=== PATIENT | female | born 1955 | race Caucasian/White ===

== ENCOUNTER 2016-05-05 11:39 | Inpatient (IN) | payer OTHER, MEDICARE ==
[~2016-05-05] VITALS: Ht 167.6 cm; Wt 72.6 kg
[~2016-05-05 11:39] MED LIST: BUPROPION HCL150 M1 PO; FLUOXETINE HCL40 MG PO; GENPRIL200 MG PO; LORAZEPAM2 MG PO; METOPROLOL SUCC25 M1 PO; MS CONTIN60 MG PO; OLANZAPINE10 MG PO; OXYCODONE HYDRO15 MG PO; ZOLPIDEM TARTRA10 MG PO
--- NOTE | 2016-05-05 11:53 | NUR ---
PT TO ED WITH . STATES PT IS "OUT OF IT" X A COUPLE DAYS. PT UNABLE TO ANSWER SIMPLE QUESTIONS. POOR HISTORIAN. STATES PT RECENTLY TREATED FOR THE FLU LAST WEEK. AFEBRILE. STATES PT HAS BEEN INCONTINENT X 1 WEEK, WHICH IS ABNORMAL FOR PT. PT PALE, LETHARGIC. PT TAKEN TO ROOM 7 VIA W/C FROM TRIAGE.
--- NOTE | 2016-05-05 11:57 | ED GENERAL ADULT ---
History of Present Illness General Chief Complaint: Altered Mental Status Stated Complaint: CONFUSION, AMS, NOT ACTING HERSELF, SICK X 1 WEEK Source: patient, family Exam Limitations: unable to give history, not alert/orientated, clinical condition, confusion, poor historian, physical impairment Vital Signs & Intake/Output Vital Signs & Intake/Output Vital Signs Date Time Temp Pulse Resp B/P Pulse O2 O2 Flow FiO2 Ox Delivery Rate 05/06 1200 97.7 05/06 0947 93 116/71 05/06 0837 98 Nasal 4.0L Cannula 05/06 0800 98 Nasal 4.0L Cannula 05/06 0800 98.4 90 24 116/80 98 Nasal 4.0L Cannula 05/06 0400 97 Nasal 4.0L Cannula 05/06 0000 98 Nasal 4.0L Cannula 05/06 0000 97.6 94 11 110/74 98 Nasal 4.0L Cannula 05/05 2139 Nasal 6.0L Cannula 05/05 2136 95 Nasal 6.0L Cannula 05/05 2011 99.1 05/05 2000 92 Nasal 6.0L Cannula 05/05 1800 92 Nasal 5.0L Cannula 05/05 1800 99.6 103 22 122/80 92 Nasal 5.0L Cannula 05/05 1733 97.7 101 18 115/69 92 Nasal 5.0L Cannula 05/05 1717 90 Nasal 4.0L Cannula ED Intake and Output 05/06 0000 05/05 1200 Intake Total 4787 Output Total 815 Balance 3972 Intake, IV 4547 Intake, Oral 240 Number 0 Bowel Movements Output, Urine 815 Patient 135 lb 165 lb Weight Allergies Coded Allergies: NO KNOWN ALLERGIES (02/01/14) Reconcile Medications Bupropion Hydrochloride (Bupropion HCl) 150 MG T12 1 TAB PO BID DEPRESSION ( Reported) Fluoxetine Hydrochloride (Fluoxetine HCl) 40 MG CAP 1 CAP PO DAILY DEPRESSION (Reported) Lorazepam 2 MG TABLET 1 TAB PO TID ANXIETY (Reported) Metoprolol Succinate 25 MG TAB 0.5 TAB PO DAILY HEART (Reported) Ms Contin (Morphine Sulfate ER) 60 MG TABLET.ER 1 TAB PO TID PAIN (Reported) Olanzapine 10 MG TAB 1 TAB PO DAILY DEPRESSION (Reported) Oxycodone Hydrochloride 15 MG TAB 1 TAB PO TID PRN PAIN (Reported) Triage Note: PT TO ED WITH . STATES PT IS "OUT OF IT" X A COUPLE DAYS. PT UNABLE TO ANSWER SIMPLE QUESTIONS. POOR HISTORIAN. STATES PT RECENTLY TREATED FOR THE FLU LAST WEEK. AFEBRILE. STATES PT HAS BEEN INCONTINENT X 1 WEEK, WHICH IS ABNORMAL FOR PT. PT PALE, LETHARGIC. PT TAKEN TO ROOM 7 VIA W/C FROM TRIAGE. Triage Nurses Notes Reviewed? yes Onset: Abrupt Duration: day(s): Timing: recent history HPI: Family GERD 05/05/16 12:15 PM 60-year-old female presents to the emergency department for altered mental status cough and fever. According to the and the patient was confused this began yesterday. The onset of the symptoms were abrupt, the duration has been approximately 7 days, the severity is significant as her symptoms required her to come to the emergency department for care. On physical exam she is awake , responds to pain. She is confused. O2 sat was in the 80s. It did come up on 4 L nasal cannula. She has poor air entry bilaterally. Past History Travel History Traveled to [place] past 21 day No Medical History Any Pertinent Medical History? see below for history Cardiovascular: hypertension Psychiatric: depression Surgical History Surgical History: non-contributory Psychosocial History Who do you live with Spouse What is your primary language [place]ian Tobacco Use: Quit >30 days ago ETOH Use: denies use Illicit Drug Use: denies illicit drug use Family History Family History, If Any: FATHER FHx: alcoholism GRAND FATHER FHx: alcoholism FHx: depression Hx Contributory? No Review of Systems Review of Systems Constitutional: Reports: fever. EENTM: Reports: no symptoms. Respiratory: Reports: cough, short of breath. Cardiovascular: Denies: chest pain. GI: Denies: abdominal pain. Genitourinary: Reports: no symptoms. Musculoskeletal: Reports: no symptoms. Skin: Reports: no symptoms. Neurological/Psychological: Reports: confusion. Hematologic/Endocrine: Reports: no symptoms. Physical Exam Physical Exam General Appearance: alert, awake, anxious, moderate distress Head: atraumatic, normal appearance Eyes: Bilateral: normal appearance, PERRL, EOMI. Ears, Nose, Throat: normal pharynx, normal ENT inspection Neck: normal inspection, supple Respiratory: decreased breath sounds, rhonchi Cardiovascular: regular rate/rhythm Peripheral Pulses: 4+ radial (R), 4+ radial (L) Gastrointestinal: non-tender Back: decreased range of motion Extremities: no edema Neurologic/Psych: confused, nonfocal Skin: intact, normal color, warm/dry Core Measures ACS in differential dx? No CVA/TIA Diagnosis: No Severe Sepsis Present: No Septic Shock Present: No Progress Differential Diagnoses I considered the following diagnoses in my evaluation of the patient: [Pneumonia , sepsis, meningitis, drug overdose, polysubstance abuse, alcohol withdrawal, alcohol intoxication, head trauma] Plan of Care: Orders Procedure Date/time Status XRY-PORTABLE CHEST XRAY 05/07 0500 Active ICU LAB BUNDLE 05/07 0500 Active CBC WITHOUT DIFFERENTIAL 05/07 0500 Active Regular Diet 05/06 B Active Restraint- Medical 05/06 1512 Active THERAPIST ORDERS 05/06 0838 Complete Restraint- Medical 05/06 0724 Complete Feldman, Insertion/Removal/Asses 05/06 0724 Active ICU LAB BUNDLE 05/06 0500 Complete CBC WITHOUT DIFFERENTIAL 05/06 0500 Complete Transfer patient to 05/06 UNK Active Regular Diet 05/05 D Complete ICU LAB BUNDLE 05/05 2332 Complete RT: Evaluation 05/05 2011 Active LOWER RESPIRATORY CULTURE 05/05 1939 Active VRE ACTIVE SURVIELLANCE 05/05 1805 Active ICU LAB BUNDLE 05/05 1800 Complete RAPID VIRAL INFLUENZA A 05/05 1721 Complete URINE OSMOLALITY 05/05 1704 Complete URINE LYTES, SPOT 05/05 1704 Complete STREP PNEUMO URINARY ANTIGEN 05/05 1658 Complete LEGIONELLA URINARY ANTIGEN 05/05 1658 Complete PHOSPHORUS 05/05 1630 Complete MAGNESIUM 05/05 1630 Complete SPUTUM INDUCTION CHG 05/05 UNK Complete OXYGEN SETUP CHG 05/05 UNK Complete INCENTIVE SPIROMETRY TRX CHG 05/05 UNK Complete AEROSOL CHG 05/05 UNK Complete OXYGEN 05/05 UNK Complete OXYGEN TRANSPORT 05/05 UNK Complete THERAPIST ORDERS 05/05 UNK Complete OXYGEN SETUP (GEN) 05/05 UNK Complete Lab Add-on Test 05/05 UNK Active Restraint- Medical 05/05 UNK Complete Current Medications Sig/Jeff Start time Last Medication Dose Stop Time Status Admin Azithromycin 500 MG Q24H 05/06 1300 CAN (Zithromax) Sodium Chloride 250 ML (Normal Saline 0.9%) Metoprolol Tartrate 12.5 MG DAILY 05/06 1000 CAN (Lopressor) Morphine Sulfate 2 MG Q4P PRN 05/05 1645 AC (Morphine) Laboratory Tests 05/06/16 0426: Anion Gap 13, Estimated GFR 14 L, Glucose 90, Calcium 7.0 L, Phosphorus 3.9, Magnesium 1.8, Total Bilirubin 0.5, AST 152 H, ALT 62 H, Albumin 2.3 L, CBC w Diff MAN DIFF ORDERED, RBC 3.30 L, MCV 85.9, MCH 29.4, RDW 14.4, MPV 8.0, Gran % 81.8 H, Lymphocytes % 14.8 L, Monocytes % 3.0, Eosinophils % 0, Basophils % 0.4, Absolute Granulocytes 4.4, Segmented Neutrophils 64, Band Neutrophils 10 H , Absolute Lymphocytes 0.8 L, Lymphocytes 23, Monocytes 2, Absolute Monocytes 0.2, Absolute Eosinophils 0, Absolute Basophils 0, Metamyelocytes 1, Platelet Estimate ADEQUATE, Polychromasia 1+, Ovalocytes 1+, PUBS MCHC 34.2 05/05/16 2357: Anion Gap 11, Estimated GFR 13 L, Glucose 99, Calcium 6.8 L, Phosphorus 3.8, Magnesium 1.8, Total Bilirubin 0.5, AST 168 H, ALT 69 H, Albumin 2.5 L 05/05/16 1805: Anion Gap 13, Estimated GFR 13 L, Glucose 111 H, Lactic Acid 1.2, Calcium 6.7 L, Phosphorus 3.5, Magnesium 1.6, Total Bilirubin 0.4, AST 161 H, ALT 63 H, Albumin 2.5 L 05/05/16 1800: Ur Random Creatinine Cancelled, U Random Total Protein Cancelled 05/05/16 1800: Urine Osmolality 368, Ur Random Creatinine 49.2, Ur Random Sodium 74, Ur Random Potassium 18.5, Fraction Sodium Excret 4.7 H 05/05/16 1715: Ur Random Creatinine 52.1, U Random Total Protein 70 H, Protein/Creatinin Ratio 1.3 H Microbiology 05/05 1999 LOWER RESP: Respiratory Culture - RES 05/05 1999 LOWER RESP: Gram Stain - RES 05/05 1800 URINE ROUT: Legionella Antigen - COMP 05/05 1800 URINE ROUT: Streptococcus pneumoniae Antigen (M - COMP STREP PNEUMO BACTERIAL AG 05/05 1800 UPPER RESP: Surveillance Culture - RECD 05/05 1800 GI: Surveillance Culture - RECD CXR Impression: bilateral pneumonia Initial ED EKG: sinus tachycardia Departure Departure Disposition: STILL A PATIENT Condition: Stable Clinical Impression Primary Impression: Pneumonia Secondary Impressions: Renal failure Referrals: JOAQUIN SAMANIEGO,SELENA Espinosa (PCP/Family) Referred to [facility] as new patient No Departure Forms: Customer Survey General Discharge Information Comments The patient was placed on a monitor, she was given oxygen, IV fluids 4 L, IV antibiotics after blood cultures. She was admitted to the hospital for further care. Skin perfusion exam was done upon my evaluation at 12:15 PM Admission Note Spoke With: JULIOCESAR SAMANIEGO,TYRELL Conner Documentation of Exam: Documentation of any treatments & extenuating circumstances including Concerns Regarding Discharge (functional status, medication knowledge or non-compliance, living conditions, etc.) that warrant an admission rather than observation: [The patient needs admission for IV antibiotics, oxygen, consider pulmonary consultation, IV fluids, strict I's and O's, ICU level care] ED Sepsis Exam Date of Focused Sepsis Exam: 05/05/16 Time of Focused Sepsis Exam: 1215 Sepsis Cardiac Exam: Tachycardia Sepsis Resp Exam: Ronchi Sepsis Cap Refill Exam: <2 Sec Sepsis Peripheral Pulse Exam: Normal Sepsis Peripheral Pulse Location: Radial Sepsis Skin Color Exam: Normal for Ethnicity Skin Temp/Moisture Exam: Warm/Dry Critical Care Note Critical Care Note Critical Care Time: 30-74 min
[2016-05-05 12:09] LABS: ABSOLUTE BASOPHIL COUNT 0 /CUMM (0.0-0.2); ABSOLUTE EOSINOPHIL COUNT 0 /CUMM (0.0-0.7); ABSOLUTE GRANULOCYTE CT 5.4 /CUMM (1.4-6.5); ABSOLUTE LYMPH COUNT 0.4 /CUMM (1.2-3.4); ABSOLUTE MONOCYTE COUNT 0.1 /CUMM (0.10-0.60); BASOPHIL % 0.7 % (0.0-2.0); EOSINOPHIL % 0 % (0-5); HEMATOCRIT 38.8 % (37-47); MEAN CORPUSCULAR HGB 28.8 PG (27.0-31.0); MEAN CORPUSCULAR HGB CONC 33.2 G/DL (33.0-37.0); MEAN CORPUSCULAR VOLUME 86.8 FL (81.0-99.0); MEAN PLATELET VOLUME 7.9 FL (7.4-10.4); PLATELET COUNT 216 /CUMM (130-400); RBC DISTRIBUTION WIDTH 13.7 % (11.5-14.5); RED BLOOD CELL CT 4.48 /CUMM (4.20-5.40)
[2016-05-05 12:20] LABS: GRANULOCYTE % 90.9 % (42.2-75.2)
--- NOTE | 2016-05-05 12:24 | NUR ---
PT IS LETHARGIC CONFUSED 02 SAT 87% ON RA PT PLACED ON 02 5L VIA NC 02 INCREASED TO 91% BLOOD DRAWN SENT TO LAB [facility] PLACED DRAINING DARK GARY URINE IV ESTABLISHED
--- NOTE | 2016-05-05 12:28 | NUR ---
CRITICAL TEST RESULTS [id number] MORGAN CALDERON 60 F TESTS AND RESULTS: LACTIC ACID 2.0 Results received and read back by: SKYLAR CLIFTON Results received date and time: 05/05/16 1254 The following provider was notified of the results, and read the results back: DR. GARCIA Notified date and time: 05/05/16 at 1222
--- NOTE | 2016-05-05 12:52 | NUR ---
PT REMAINS CONFUSED FLUIDS INFUSING DIRECTED ABX INFUSED AFTER 2ND SET OF BLOOD CULTURES
--- NOTE | 2016-05-05 13:25 | NUR ---
PT ALERT AT THIS TIME AWARE THAT SHE IS IN THE HOSPITAL FLUIDS CONT. TO INFUSE
--- NOTE | 2016-05-05 13:30 | RADIOLOGY REPORT ---
EXAMINATION: XR PORTABLE CHEST CLINICAL INFORMATION: Shortness of breath. Acute mental status change. Hypoxia. COMPARISON: None. TECHNIQUE: Portable view of the chest was obtained. FINDINGS: The cardiac and mediastinal contours are normal. There is scattered increased parenchymal opacities seen in the lungs. Largest area measures 2.3 cm and projects over the left upper lobe and left lower scapula. Appearances questionable for pneumonia. There is no pleural effusion or pneumothorax. Visualized bony structures are unremarkable. IMPRESSION: Scattered abnormal parenchymal opacities, largest measuring approximately 2.3 cm projecting over the left upper lobe. Chest x-ray appearance is questionable for bilateral multilobar pneumonia.
--- NOTE | 2016-05-05 15:02 | NUR ---
BED 109
--- NOTE | 2016-05-05 15:10 | NUR ---
REPEAT LACTIC DRAWN AND SENT
--- NOTE | 2016-05-05 15:25 | Admission Certification ---
Admission Certification Certification Statement - As attending physician, I certify that at the time of - admission, based on clinical presentation, severity of - symptoms, need for further diagnostic testing and - therapeutic interventions, and risk of adverse outcomes - without in-hospital treatment, in my clinical assessment, - this patient requires an acute hospital stay for a minimum - of two nights or longer. I have also considered psychsocial - factors such as support system, advanced age, financial - issues, cognitive issues, and failed out-patient treatments, - past re-admission history, safety of patient, and lack of - compliance as applicable. Specific rationale supporting this admission is: Multilobar pneumonia with significant hypoxemia and acute renal failure.
--- NOTE | 2016-05-05 15:28 | PN- Att Addend ---
Attending Addendum Attending Brief Note 60-year-old female with significant psychiatric history and chronic opiate dependence. She is on multiple psychiatric medications and opiate medications. She is here with what appears to be severe multilobar pneumonia with acute hypoxemic respiratory failure (87%on RA), acute renal failure, no leukocytosis but significant bandemia, lactic acidosis and transaminitis. I think her symptoms are all related to the ongoing infection. She is already become more awake and alert after getting IV fluids and IV antibiotics in the ER. Will watch her in the ICU overnight, I have no suspicion of MRSA or pseudomonas so we 'll continue her on ceftriaxone and azithromycin for community-acquired pneumonia. Hydrate her aggressively and repeat her BMP to follow-up on the BUN and creatinine. Follow the urine output closely. Repeat the lactic acid. Get urine electrolytes and if her creatinine doesn't improve her renal ultrasound to rule out obstruction. Renal consult. We'll obviously have to hold on any sedating medications for now but will watch closely for opiate withdrawal. We' ll need to clarify all her anti-psychotics and psychiatric medications. DVT prophylaxis and follow her closely. TTS 42 minutes
--- NOTE | 2016-05-05 15:41 | NUR ---
HOUSE STAFF IN ROOM FOR EVAL.
--- NOTE | 2016-05-05 16:00 | History & Physical ---
JAGRUTI SAMANIEGOLETA 05/05/16 5959: General Information and HPI MD Statement: I have seen and personally examined MORGAN CALDERON and documented this H&P. The patient is a 60 year old F brought in by her for evaluation of altered mental status. Source of Information: patient, family, old records Exam Limitations: unable to give history, not alert/orientated, clinical condition, confusion History of Present Illness: 60-year-old woman seen for evaluation of altered mental status. Collateral information is obtained from her Ata as patient is not alert or oriented. She was in her normal state of health until one week ago where she and her developed "the flu". During this time the both were bedridden with shortness of breath, fever, cough, nausea, and vomiting. Reports that she had decreased oral intake during this time. Patient was reportedly "feeling better" the day prior to admission and was in her normal state of health. At baseline she is disabled secondary to back/right hip pain and a history of depression with suicidal ideation, no attempts but remains active going to the gym each day. 2 weeks ago patient was seen by her primary care physician Dr. Singh in [place] (recently moved to [place] from there) for symptoms of incontinence on the treadmill for which she was prescribed Vesicare. She then subsequently developed urinary and bowel incontinence for which she then discontinued the medication two days prior to admission. Information regarding history of present illness is unobtainable from patient as she is not oriented to person place or time. Her denies that his uses any alcohol, tobacco, or recreational drug use. Review of systems is unobtainable due to patient's medical condition. PMHx: Hypertension, Depression, Suicidal Ideation, Lowback/right hip pain Allergies/Medications Allergies: Coded Allergies: NO KNOWN ALLERGIES (02/01/14) Home Med list Bupropion Hydrochloride (Bupropion HCl) 150 MG T12 1 TAB PO BID DEPRESSION ( Reported) Fluoxetine Hydrochloride (Fluoxetine HCl) 40 MG CAP 1 CAP PO DAILY DEPRESSION (Reported) Lorazepam 2 MG TABLET 1 TAB PO TID ANXIETY (Reported) Metoprolol Succinate 25 MG TAB 0.5 TAB PO DAILY HEART (Reported) Ms Contin (Morphine Sulfate ER) 60 MG TABLET.ER 1 TAB PO TID PAIN (Reported) Olanzapine 10 MG TAB 1 TAB PO DAILY DEPRESSION (Reported) Oxycodone Hydrochloride 15 MG TAB 1 TAB PO TID PRN PAIN (Reported) Past History Travel History Traveled to [place] past 21 day No Medical History Cardiovascular: hypertension Musculoskeletal: CHRONIC BACK PAIN Psychiatric: depression Surgical History Surgical History: unobtainable Past Family/Social History Family History Relations & Conditions if any FATHER FHx: alcoholism GRAND FATHER FHx: alcoholism FHx: depression Psychosocial History Where do you live? Home Who Do You Live With? spouse ETOH Use: denies use Illicit Drug Use: denies illicit drug use Review of Systems Review of Systems Constitutional: Reports: see HPI. Exam & Diagnostic Data Last 24 Hrs of Vital Signs/I&O Vital Signs Date Time Temp Pulse Resp B/P Pulse O2 O2 Flow FiO2 Ox Delivery Rate 05/05 1733 97.7 101 18 115/69 92 Nasal 5.0L Cannula 05/05 1717 90 Nasal 4.0L Cannula 05/05 1641 98.7 101 22 116/74 91 Nasal 3.0L Cannula 05/05 1612 97.7 101 20 121/83 92 Nasal 3.0L Cannula 05/05 1532 98.9 101 18 113/79 18 Nasal 3.0L Cannula 05/05 1325 98.7 105 16 118/69 92 Nasal 4.0L Cannula 05/05 1256 99.4 107 18 126/69 93 Nasal 3.0L Cannula 05/05 1226 92 Nasal Cannula 05/05 1149 97.1 112 20 102/69 95 Room Air Intake & Output 05/05 1600 05/05 0800 05/05 0000 Intake Total 3000 Output Total 320 Balance 2680 Intake, IV 3000 Output, Urine 320 Patient 74.843 kg Weight Physical Exam General Appearance Alert, Oriented X3, Cooperative, No Acute Distress Skin No Rashes, No Breakdown, No Significant Lesion HEENT Atraumatic, PERRLA, EOMI, Dry mucous membranes with scaling Neck Supple Cardiovascular Regular Rate, Normal S1, Normal S2, No Murmurs Lungs Diffuse crackles/rhonchi/wheezing heard in all lung mueller Abdomen Normal Bowel Sounds, Soft, No Tenderness, No Hepatospenomegaly, No Masses Neurological Normal Tone, not oriented to person place or time, cranial nerves II through XII grossly intact, otherwise limited neurological exam Extremities No Clubbing, No Cyanosis, No Edema, Normal Pulses, No Tenderness/ Swelling Vascular Normal Pulses, Pulses Symmetrical Last 24 Hrs of Labs/Evangelist: Laboratory Tests 05/05/16 1630: Phosphorus 3.4, Magnesium 1.6, Creatine Kinase 4655 H, Troponin I < 0.01 05/05/16 1509: Lactic Acid 2.9 H 05/05/16 1255: pH 7.40, pCO2 36, pO2 65 L, HCO3 22, ABG O2 Sat (Measured) 91.0 L, P-50 (Temp Corrected) Y, Carboxyhemoglobin 0.7 L, O2 Concentration % 3L, Temperature 99.4, O2 Delivery Method N/C, Phlebotomy Draw Site RIGHT RADIAL 05/05/16 1220: Urine Opiates Screen > 4000.00 H, Methadone Screen 57, Barbiturate Screen < 60, Ur Phencyclidine Scrn < 6.00, Amphetamines Screen 466, U Benzodiazepines Scrn 159, Urine Cocaine Screen < 50, Urine Cannabis Screen < 5.00, Urinalysis HEAVY H, Urine Color YEL, Urine Clarity HAZY H, Urine pH 6.0, Ur Specific [place] 1.025, Urine Protein 100 H, Urine Ketones NEG, Urine Nitrite NEG, Urine Bilirubin NEG, Urine Urobilinogen 0.2, Ur Leukocyte Esterase NEG, Ur Microscopic SEDIMENT EXAMINED, Urine RBC 5-10 H, Urine WBC 1-3 H, Ur Epithelial Cells RARE , Urine Hemoglobin LARGE H, Urine Glucose NEG 05/05/16 1201: Anion Gap 18 H, Estimated GFR 11 L, BUN/Creatinine Ratio 15.6, Glucose 113 H, Lactic Acid 2.0, Calcium 8.0 L, Total Bilirubin 0.8, AST 206 H, ALT 75 H, Alkaline Phosphatase 74, Ammonia 15, Total Protein 6.5, Albumin 3.5, Globulin 3.0, Albumin/Globulin Ratio 1.2, CBC w Diff MAN DIFF ORDERED, RBC 4.48, MCV 86.8 , MCH 28.8, RDW 13.7, MPV 7.9, Gran % 90.9 H, Lymphocytes % 6.7 L, Monocytes % 1.7, Eosinophils % 0, Basophils % 0.7, Absolute Granulocytes 5.4, Segmented Neutrophils 71, Band Neutrophils 17 H, Absolute Lymphocytes 0.4 L, Lymphocytes 10 L, Monocytes 2, Absolute Monocytes 0.1 L, Absolute Eosinophils 0, Absolute Basophils 0, Normocytic RBCs VERIFIED, Normochromic RBCs VERIFIED, PUBS MCHC 33.2 Microbiology 01/02 1658 URINE ROUT: Legionella Antigen - ORD 05/05 1658 URINE ROUT: Streptococcus pneumoniae Antigen (M - ORD 05/05 1551 UPPER RESP: Surveillance Culture - ORD 05/05 1236 BLOOD: Blood Culture - RECD 05/05 1220 URINE ROUT: Urine Culture - RECD 05/05 1220 BLOOD: Blood Culture - RECD Diagnostic Data EKG Results Sinus tachycardia 104 ND 146 QTc 495 Q waves II, aVF, V4-V6 No ST-segment changes Repeat EKG Normal Sinus Rhythm 85 ND 192 QTc 505 Q-wave II,III,AVF, V4-[address]-segment changes CXR Results IMPRESSION: Scattered abnormal parenchymal opacities, largest measuring approximately 2.3 cm projecting over the left upper lobe. Chest x-ray appearance is questionable for bilateral multilobar pneumonia. Assessment/Plan Assessment: 60-year-old woman with a medical history significant for hypertension, depression, suicidal ideation without attempts seen for evaluation of altered mental status. Patient had "the flu" 1 week prior to admission for which she had decreased by mouth intake and subsequently became more confused. During this time she was also incontinent of urine and stool, which reportedly started after she started taking Vesicare. She was found to be creasing the more confused this morning for which her can brought her to the emergency department for evaluation. Triage notes that patient was hypoxic to 80% upon initial evaluation. Vital signs the ER demonstrated temp 97.7-99.4, HR 101-112, RR 16-22, BP 102-26/69-83, O2 91-95% on 4.0 L via nasal cannula. Physical examination demonstrated woman not oriented to person place or time in mild respiratory distress with crackles heard in all 4 lung mueller and a limited but benign neurological exam. Lab work was remarkable for WBC 6.0, BUN/ creatinine 67/4.3, lactic acid 2.9, AST/ALT 206/75, troponin <0.01, CPK pending. Arterial blood gas demonstrated hypoxia and chest x-ray demonstrated multilobar pneumonia. Urine toxicology was positive for opiates, methadone, amphetamines, and benzodiazepines. Blood/urine cultures were taken and patient was given intravenous fluids and antibiotics and admitted to the intensive care unit for further treatment and evaluation. Problem list: -Acute hypoxic respiratory failure -Sepsis -Community-acquired pneumonia -Prerenal acute kidney injury -Positive urine tox screen -Q waves on EKG in inferior leads/V4-V6 Respiratory/infectious disease: Patient was afebrile without leukocytosis upon initial evaluation despite being hypoxic to the "80s "in triage requiring supplemental oxygen via nasal cannula. -TRC neb treatments as needed -Ceftriaxone 1 g IV daily -Azithromycin 500 mg IV daily -Albuterol/ipratropium -Follow-up CT chest Cardiovascular: EKG on initial evaluation demonstrated sinus tachycardia with QTc prolongation and Q waves present and inferior leaves and V4-6. Troponin was <0.01. Patient, although altered does admit to left-sided chest pain radiating through to the back. -Telemetry -Metoprolol XL 12.5 mg by mouth daily Renal: Patient found to be severely dehydrated requiring 5+ liters of normal saline intravenous resuscitation prior to being admitted. BUN/creatinine found to be elevated suggestive of a pre-renal acute kidney injury. It was found to be elevated to 4600. -Normal saline at 100 mL per hour -Nephrology consult placed, follow-up recommendations -Follow-up renal ultrasound -Follow-up urine electrolytes Musculoskeletal: Patient reportedly has a history of long-standing back pain and right hip pain for which she is seen by her primary care physician (Dr. Singh) and treated with opiate narcotics. CPK found to be elevated to 4600. CT COOLING TOWER OPERATOR checked, reported medications are consistent with this report; printed copy is available in the chart. -MS Contin held for altered mental status -Oxycodone 15 mg by mouth 3 times a day as needed for pain 4-6 -Morphine 2 mg IV every 4 hours as needed for pain 7-10 Psychiatric: Patient has an extensive history of depression and suicidal ideation without any reported attempts. She was seen by Dr. Hutchinson of [place] for treatment of this initially and has been maintained on her antipsychotic/depression medication regimen for some time by her PCP, which has been reportedly stable. -Bupropion/fluoxetine/olanzapine held for prolonged QTC -Lorazepam 1 mg by mouth 3 times a day as needed -Psychiatric consult placed, follow-up recommendations Pain plan-as above Diet-nothing by mouth pending swallow evaluation in morning DVT prophylaxis-subcutaneous heparin CODE STATUS-DNR/DNI per As Ranked By This Provider Problem List: 1. Pneumonia 2. Renal failure Core Measures/Miscellaneous Acute Coronary Syndrome ACS Diagnosis: No Cerebrovascular Accident CVA/TIA Diagnosis: No Congestive Heart Failure CHF Diagnosis: No Venous Thromboembolism VTE Risk Factors: Age > 40 VTE Prophylaxis Ordered Inpt: Mech & Pharm No Mech VTE prophylaxis d/t: No contraindications No VTE Pharm Prophylaxis d/t: No contraindications VTE Diagnosis: No VTE Type: NONE VTE Confirmed by (Test): NONE Severe Sepsis Severe Sepsis Present: No Septic Shock Septic Shock Present: No Miscellaneous Documentation Attending Case Discussed With: JULIOCESAR SAMANIEGO,TYRELL Conner Primary Care Physician: SELENA SINGH MD Patient sees these Specialists None Level of Patient Care: Critical Care (CRI) Consults Needed: 1 Consulting Specialty: Nephrology Consults Needed: 2 Consulting Specialty: Psychiatry MATT MASON 05/05/16 1643: Resident Review Statement Resident Statement: agreed with internal combustion engine subassembler Other Findings: She is 60-year-old woman with past medical history of severe depression, bipolar disorder, suicidal ideation in past, hypertension, chronic opiate dependence ( lower back and right hip pain) was brought into ER by with complaint of altered mental status. Upon our evaluation patient was confused so most of the history was obtained from who told us that 2 weeks ago she was having flulike symptoms, bowel and urinary incontinence and decreased by mouth intake. She was completely oriented and with it until yesterday. This morning she was confused and altered and he brought her here. denies use of tobacco, alcohol or illicit drug use. She does not see any specialist. Dr. Singh, PCP takes care of all her health issues. When she came to ER her temperature was 97.1, pulse 112, respiratory rate 20, blood pressure 102/69 and oxygen saturation 87% on room air. She was put on 5 L of oxygen via nasal cannula and oxygen saturation went up to 91%. Physical exam General appearance: Alert, awake but confused Mucous membranes: Very dry HEENT: Pupils minimally reactive Neck: Supple Heart: Tachycardia. No murmurs Lungs: Diffuse rhonchi all over Abdominal exam: Normal Extremities: No edema. Pulses palpable Pertinent labs: WBC count 6 with 17 bands, BUN 67, creatinine 4.3, lactic acid 2.0 that went up to 2.9, AST 206, ALT 75, U tox positive for opiates, methadone, amphetamines and benzos. ABGs not significant. UA with 2+ proteinuria. EKG: Normal sinus rhythm with Heart rate 104, no acute ST-T wave changes. QTC 495 CXR: Findings suggestive of multilobar pneumonia In ER she was given IV fluids, ceftriaxone and azithromycin 1 and nebulization treatment. Assessment and plan She is 60-year-old woman with past medical history of severe depression, bipolar disorder, suicidal ideation in past, hypertension, chronic opiate dependence is going to be admitted to critical care unit for: 1. Acute hypoxemic respiratory failure secondary to sepsis due to multilobar pneumonia most likely community-acquired 2. Acute kidney injury most likely secondary to severe dehydration 3. Transaminitis most likely secondary to sepsis 4. Lactic acidosis 5. Positive U tox screen 6. Severe depression/bipolar disorder/suicidal ideation in past 7. Hypertension 8. Chronic opiate dependence due to chronic back and hip pain Will continue supplemental oxygen. Will keep oxygen saturation more than 92%. Closer vitals monitoring. Will continue ceftriaxone and azithromycin. TRC nebs. Blood and sputum cultures. Urine Legionella and strep pneumonia antigen. CT chest w/o IV contrast. We will continue IV hydration. Will check kidney functions again in few hours. Feldman is in place. Strict I's and O's. Avoid nephrotoxins. Renal ultrasound to rule out any obstruction. Spoke with Dr. Fontenot who is vice president mission integration cost accounting clerk. Recommended to add on CPK, magnesium and phosphorous. He also wants to do urine lites and spot urine creatinine and protein. He does not think patient needs urgent dialysis. We'll update him about repeat labs. We will also consult psych for her severe depression and bipolar disorder. We are holding her antipsychotic medications for now. Will give her 1 mg Ativan when necessary for agitation or irritability. She is chronic opiate dependence we are continuing her oxycodone. Holding MS Contin. We can give her IV morphine when necessary for chronic pain. We will continue her metoprolol. Will closely monitor blood pressure. Subcutaneous heparin for DVT prophylaxis Nothing by mouth for now. Will do a bedside swallow evaluation and can start her on regular diet Moderate to severe pain pathway DNR/DNI TYRELL GANDARA MD 05/06/16 0748: Attending MD Review Statement Attending Statement Attending MD Statement: examined this patient, discuss w/resident/PA/COMBER TENDER, agreed w/resident/PA/COMBER TENDER, reviewed EMR data (avail), discussed with nursing, discussed with case mgmt Attending Assessment/Plan: See medical brief addendum note dated 05/05/16
--- NOTE | 2016-05-05 16:32 | NUR ---
REPEAT TROPONIN DRAWN AND SENT TO LAB
--- NOTE | 2016-05-05 17:07 | NUR ---
REPORT CALLED TO GABRIELA JUÁREZ RESP. PAGED FOR NEB TREATMENT
--- NOTE | 2016-05-05 17:18 | NUR ---
PT RECEIVING NEB TREATMENT AFTER TREATMENT PT WILL GO TO CAT SCAN AND THEN TO US
--- NOTE | 2016-05-05 17:21 | NUR ---
SPOUSE BROUGHT HOME ALL PT BELONGINGS
[2016-05-05 18:00] VITALS: BP 122/80
--- NOTE | 2016-05-05 18:11 | CT SCAN REPORT ---
EXAMINATION: CT CHEST WITHOUT CONTRAST CLINICAL INFORMATION: Acute hypoxia and respiratory failure. 60-year-old female. COMPARISON: Precocious x-ray done earlier today. (Atypical pneumonia). TECHNIQUE: Multidetector volumetric CT imaging of the chest was done. Axial MIP volume rendering provided. Sagittal and coronal reformatted images were obtained. DLP: 183 mGy-cm. FINDINGS: SCIENTIFIC PROCESS OPERATOR: Progressive pneumonia in both lungs. LUNGS: Multilobar airspace opacities are seen in both lungs diagnostic of multilobar pneumonia. The worst involvement is in the left lower lobe which shows dense consolidation and air bronchograms. MEDIASTINUM: Subcentimeter lymph nodes could well be reactive. There is a suggestion of bilateral bronchomalacia. PLEURA: There is no pleural effusion. No pleural mass or thickening. AXILLA: No lymphadenopathy. UPPER ABDOMEN: The patient's gallbladder has been removed. Recommend ultrasound the kidneys to evaluate the possibility of hydronephrosis of the left kidney. OSSEOUS STRUCTURES: Unremarkable. IMPRESSION: Rapidly progressive multilobar pneumonia. Bronchomalacia.
--- NOTE | 2016-05-05 20:26 | NUR ---
PT DROWSY, EASILY AROUSABLE TO VERBAL STIMULI, CONFUSED, DISORIENTED TO TIME AND PLACE. FOLLOWS COMMANDS. C/O HEADACHE-SEE EMAR FOR PAIN MED ADMINISTRATION. DENIES ANY OTHER PAIN AT PRESENT. INS/ EXP WHEEZES THOUGHOUT BILATERALLY. NT SUCTIONED BY RESP THERAPIST FOR LARGE AMT OF THICK DONIS SECREATIONS. NO SOB OR RESP DISTRESS NOTED AT PRESENT. SEE FLOW SHEET FOR VS, 02 SATS, I/O'S. MONITOR SHOWS NSR-ST, NO ECTOPY NOTED AT PRESENT. BP STABLE AT PRESENT. ABD SOFT, NONTENDER, NONDISTENDED, POSITVE BOWEL SOUNDS. ALMARAZ IN PLACE-DRAINING ADEQUATE AMT OF CLEAR YELLOW URINE AT PRESENT. SKIN INTACT
--- NOTE | 2016-05-05 22:29 | NUR ---
PT PULLING AT 02, IV'S, ALMARAZ-BILATERAL SOFT RESTRAINTS APPLIED-REPORTED TO DR. MCQUEEN
[2016-05-06] VITALS: BP 110/74
[2016-05-06 05:15] LABS: ABSOLUTE BASOPHIL COUNT 0 /CUMM (0.0-0.2); ABSOLUTE EOSINOPHIL COUNT 0 /CUMM (0.0-0.7); ABSOLUTE LYMPH COUNT 0.8 /CUMM (1.2-3.4); RBC DISTRIBUTION WIDTH 14.4 % (11.5-14.5); WHITE BLOOD CELL COUNT 5.4 /CUMM (4.8-10.8)
[2016-05-06 05:22] LABS: ABSOLUTE GRANULOCYTE CT 4.4 /CUMM (1.4-6.5); ABSOLUTE MONOCYTE COUNT 0.2 /CUMM (0.10-0.60); BASOPHIL % 0.4 % (0.0-2.0); EOSINOPHIL % 0 % (0-5); GRANULOCYTE % 81.8 % (42.2-75.2); MEAN CORPUSCULAR HGB 29.4 PG (27.0-31.0); MEAN CORPUSCULAR HGB CONC 34.2 G/DL (33.0-37.0); MEAN CORPUSCULAR VOLUME 85.9 FL (81.0-99.0); PLATELET COUNT 193 /CUMM (130-400)
[2016-05-06 05:25] LABS: HEMATOCRIT 28.3 % (37-47)
--- NOTE | 2016-05-06 06:16 | NUR ---
PT SLEPT MOST OF NIGHT. PT NOW ORIENTED TO PLACE AND YEAR, COOPERATIVE WITH CARE-SOFT BILATERAL WRIST RESTRAINTS REMOVED AT 0400-PT NO LONGER PULLING AT ALMARAZ, 02, IV'S. INS/EXP IMPROVED FROM BEGINNING OF SHIFT. NO COUGH, SOB OR RESP DISTRESS NOTED THOUGHOUT SHIFT. 02 SATS 96-100% ON 4LNC FOR SHIFT. MONITOR NSR, NO ECTOPY THOUGHOUT SHIFT, HR-80-90'S FOR SHIFT. SBP-90-110'S FOR SHIFT. AFEBRILE FOR SHIFT. ADEQUATE URINE OUTPUT OF CLEAR YELLOW URINE FOR SHIFT. SKIN INTACT. SINCE MEDICATED FOR HEADACHE, NO MORE C/O PAIN FOR SHIFT. ALYSIA VEST REMAINS ON
[2016-05-06 08:00] VITALS: BP 116/80
--- NOTE | 2016-05-06 10:05 | NUR ---
TRANSFER ORDER TO GENERAL MEDICINE; NOTIFIED ED V. MANAGER CLINICAL APPLICATIONS NURSE. REVIEWED WITH PATIENT. CALL HARKINS IN [place].
--- NOTE | 2016-05-06 11:01 | Cons- Nephrology ---
General Information and HPI Consulting Request Date of Consult: 05/06/16 Requested By: TYRELL GANDARA MD Reason for Consult: Elevated serum creatinine level History of Present Illness: The patient is a 60-year-old woman with a past medical history that includes hypertension and depression but no previous history of kidney disease. Most recent serum creatinine level available is from February 2014 at which time her creatinine was 0.9. She was now admitted with a one-week history of a flulike illness with cough, shortness of breath, nausea, vomiting, diarrhea (which she denies) and poor by mouth intake. She was also confused at time of presentation. Blood pressures have been quite normal, perhaps slightly low for someone with a history of hypertension. Serum creatinine at presentation yesterday was 4.3 and has come down to 3.3 today with IV fluids. There has been no hypotension and no exposure to potential nephrotoxins. She does have a history of suicide ideation and is on a number of sedatives and pain medications - primarily for chronic back pain. Renal ultrasound and blood/urine culture results are pending. Chest x-ray shows multilobar pneumonia and urine pneumococcal antigen is positive with a negative Legionella antigen. Past medical history is positive for hypertension, depression, chronic low back pain. Medications: See below Allergies: No known drug allergies Family history: Negative for any known kidney disease in parents or any other family members Social history: , lives with , has 4 children and 4 grandchildren, worked in daycare in the past, no significant history of cigarette smoking, alcohol abuse or intravenous drug use. Allergies/Medications Allergies: Coded Allergies: NO KNOWN ALLERGIES (02/01/14) Home Med List: Bupropion Hydrochloride (Bupropion HCl) 150 MG T12 1 TAB PO BID DEPRESSION ( Reported) Fluoxetine Hydrochloride (Fluoxetine HCl) 40 MG CAP 1 CAP PO DAILY DEPRESSION (Reported) Lorazepam 2 MG TABLET 1 TAB PO TID ANXIETY (Reported) Metoprolol Succinate 25 MG TAB 0.5 TAB PO DAILY HEART (Reported) Ms Contin (Morphine Sulfate ER) 60 MG TABLET.ER 1 TAB PO TID PAIN (Reported) Olanzapine 10 MG TAB 1 TAB PO DAILY DEPRESSION (Reported) Oxycodone Hydrochloride 15 MG TAB 1 TAB PO TID PRN PAIN (Reported) Review of Systems Review of Systems Constitutional: Reports: see HPI, fever, malaise, weakness. EENTM: Reports: see HPI. Cardiovascular: Reports: see HPI. Respiratory: Reports: see HPI, cough, short of breath, wheezing. GI: Reports: see HPI, diarrhea, vomiting. Genitourinary: Reports: no symptoms, see HPI. Musculoskeletal: Reports: see HPI, back pain. Skin: Reports: no symptoms, see HPI. Neurological/Psychological: Reports: see HPI, cognitive dysfunction, confusion, depressed. Hematologic/Endocrine: Reports: no symptoms. Immunologic/Allergic: Reports: no symptoms. Past History Travel History Traveled to [place] past 21 day No Medical History Blood Transfusion Hx: No Cardiovascular: hypertension Musculoskeletal: CHRONIC BACK PAIN Psychiatric: depression Surgical History Surgical History: unobtainable Family History Relations & Conditions If Any: FATHER FHx: alcoholism GRAND FATHER FHx: alcoholism FHx: depression Psychosocial History Where Do You Live? Home Who Do You Live With? spouse Smoking Status: Unknown If Ever Smoked ETOH Use: denies use Illicit Drug Use: denies illicit drug use Exam & Diagnostic Data Vital Signs and I&O Vital Signs Date Time Temp Pulse Resp B/P Pulse O2 O2 Flow FiO2 Ox Delivery Rate 05/06 0947 93 116/71 05/06 0837 98 Nasal 4.0L Cannula 05/06 0800 98 Nasal 4.0L Cannula 05/06 0800 98.4 90 24 116/80 98 Nasal 4.0L Cannula 05/06 0400 97 Nasal 4.0L Cannula 05/06 0000 98 Nasal 4.0L Cannula 05/06 0000 97.6 94 11 110/74 98 Nasal 4.0L Cannula 05/05 2139 Nasal 6.0L Cannula 05/05 2136 95 Nasal 6.0L Cannula 05/05 2011 99.1 05/05 2000 92 Nasal 6.0L Cannula 05/05 1800 92 Nasal 5.0L Cannula 05/05 1800 99.6 103 22 122/80 92 Nasal 5.0L Cannula 05/05 1733 97.7 101 18 115/69 92 Nasal 5.0L Cannula 05/05 1717 90 Nasal 4.0L Cannula 05/05 1641 98.7 101 22 116/74 91 Nasal 3.0L Cannula 05/05 1612 97.7 101 20 121/83 92 Nasal 3.0L Cannula 05/05 1532 98.9 101 18 113/79 18 Nasal 3.0L Cannula 05/05 1325 98.7 105 16 118/69 92 Nasal 4.0L Cannula 05/05 1256 99.4 107 18 126/69 93 Nasal 3.0L Cannula 05/05 1226 92 Nasal Cannula 05/05 1149 97.1 112 20 102/69 95 Room Air Intake & Output 05/06 1600 05/06 0400 05/05 1600 05/05 0400 05/04 1600 05/04 0400 Intake Total 771 1787 3000 Output Total 645 495 320 Balance 126 1292 2680 Intake, IV 771 1547 3000 Intake, Oral 240 Number 0 Bowel Movements Output, Urine 645 495 320 Patient 160 lb 135 lb 165 lb Weight Physical Exam: General: Well-developed white female sounding congested but in NAD Skin: No rash or jaundice HEENT: Conjunctivae pink, sclerae anicteric, pupils dilated, mucous membranes dry Neck: Without masses or thyromegaly, no supraclavicular or cervical adenopathy Chest: Wheezes and rhonchi noted bilaterally Heart: Regular rate and rhythm without S3 or rub Abdomen: Soft and nontender without palpable masses or organomegaly Extremities: Without cyanosis or edema Neuro: No focal findings, no asterixis or myoclonus; she is somewhat slow to respond to questions but appears to be cognitively relatively intact at this time Assessment/Plan Assessment/Recommendations Assessment: 60-year-old woman admitted with a one-week history of GI and respiratory symptoms, confused at time of admission and found to have multilobar pneumonia with positive urinary pneumococcal antigen and what appears to be LAYA. Renal function is improving with IV fluids suggesting that it is primarily of a prerenal nature. It does not appear to have been any exposure to potential nephrotoxins. Culture results and renal ultrasound are pending. Recommendations: 1. Renal ultrasound 2. Continue IV normal saline at 100 mL per hour. 3. Antibiotic therapy for pneumococcal pneumonia and possible pneumococcal sepsis Thank you. Will follow up.
--- NOTE | 2016-05-06 11:23 | ULTRASOUND REPORT ---
EXAMINATION: US RETROPERITONEAL COMPLETE (RENAL) CLINICAL INFORMATION: Renal obstruction. COMPARISON: None. TECHNIQUE: Real-time imaging of the kidneys and bladder. FINDINGS: RIGHT KIDNEY: The right kidney is normal in size measuring 13.4 x 4.8 x 4.9 cm. There is no right hydronephrosis. LEFT KIDNEY: The left kidney is normal in size, measuring 11.7 x 5.2 x 3.6 cm. There is no left hydronephrosis. BLADDER: The urinary bladder is decompressed around a Feldman catheter. IMPRESSION: No evidence of renal obstruction.
--- NOTE | 2016-05-06 12:00 | NUR ---
ALYSIA RESTRAINT REMOVED; PATIENT COOPERATIVE WITH CARE; BED ALARM ON; CALL [facility] IN [facility].
--- NOTE | 2016-05-06 13:35 | PN- Att Addend ---
Attending Addendum Attending Brief Note Pt seen and examined. Agree with the brand marketing intern's note. Patient looks much better than yesterday. Her urine antigen is positive for pneumococcus. She is a 60- year-old female with chronic opiate dependence and significant psychiatric history who is here with pneumococcal pneumonia. With multilobar pneumonia with acute renal failure and transaminitis. Her creatinine has improved nicely from 4.3-3.3. We'll continue fluids, the renal ultrasound is negative for obstruction. She stable [facility]. Will need psych eval and as her mentation improves and we can restart her long-acting opiates.
--- NOTE | 2016-05-06 15:15 | PN- Housestaff ---
Subjective Follow-up For: Acute hypoxic respiratory failure Sepsis Community-acquired pneumonia Acute kidney injury Subjective: Patient seen and examined. She is seen sitting upright in bed eating breakfast accompanied by her . She appears to be in no acute distress. She is oriented to person and place but does not know the month or year. She appears lethargic and confused, however somewhat more alert than previous day. She reports minimal left-sided chest pain that has somewhat improved since yesterday and a productive cough. She denies any headache, fever, chills, nausea, vomiting, diarrhea. No overnight events reported. Review of Systems Constitutional: Reports: see HPI. Objective Last 24 Hrs of Vital Signs/I&O Vital Signs Date Time Temp Pulse Resp B/P Pulse O2 O2 Flow FiO2 Ox Delivery Rate 05/06 1200 97.7 05/06 0947 93 116/71 05/06 0837 98 Nasal 4.0L Cannula 05/06 0800 98 Nasal 4.0L Cannula 05/06 0800 98.4 90 24 116/80 98 Nasal 4.0L Cannula 05/06 0400 97 Nasal 4.0L Cannula 05/06 0000 98 Nasal 4.0L Cannula 05/06 0000 97.6 94 11 110/74 98 Nasal 4.0L Cannula 05/05 2139 Nasal 6.0L Cannula 05/05 2136 95 Nasal 6.0L Cannula 05/05 2011 99.1 05/05 2000 92 Nasal 6.0L Cannula 05/05 1800 92 Nasal 5.0L Cannula 05/05 1800 99.6 103 22 122/80 92 Nasal 5.0L Cannula 05/05 1733 97.7 101 18 115/69 92 Nasal 5.0L Cannula 05/05 1717 90 Nasal 4.0L Cannula 05/05 1641 98.7 101 22 116/74 91 Nasal 3.0L Cannula 05/05 1612 97.7 101 20 121/83 92 Nasal 3.0L Cannula Intake & Output 05/06 1600 05/06 0800 05/06 0000 Intake Total 1387 204 8515 Output Total 700 645 495 Balance 413 646 4223 Intake, IV 782 066 3349 Intake, Oral 480 240 Number 1 0 Bowel Movements Output, Urine 700 645 495 Patient 72.575 kg 72.575 kg 61.235 kg Weight Physical Exam General Appearance: Alert, Cooperative, No Acute Distress Other Physical Findings: General -well-developed, middle-aged woman in no acute distress, Concrete restraint in place HEENT - NCAT, PERRLA, EOMI, anicteric sclera Cardio - S1, S2 w/o murmurs/gallops/rubs Resp -diffuse rhonchi with minimal bibasilar crackles GI -soft, nontender, nondistended, bowel sounds present -Feldman catheter in place Neuro -awake, oriented to place and person, confused/somnolent, cranial nerves II-12 grossly intact, sensation intact diffusely Current Medications: Current Medications Sig/[facility] Start time Last Medication Dose Route Stop Time Status Admin Acetylcysteine 2 ML EVERY 4 HRS/AWAKE 05/05 1999 AC 05/06 INH 1220 Albuterol Sulfate 3 ML EVERY 4 HRS/AWAKE 05/05 1999 AC 05/06 INH 1219 Albuterol Sulfate 0 .STK-MED ONE 05/05 1715 DC INH Albuterol Sulfate 3 ML ONCE ONE 05/05 1700 DC 05/05 INH 05/05 1701 1717 Azithromycin 500 MG Q24H 05/06 1300 CAN Sodium Chloride 250 ML IV Ceftriaxone Sodium 1,000 MG Q24H 05/06 1300 AC 05/06 IV 1308 Guaifenesin 600 MG Q12 05/05 2200 AC 05/06 PO 0947 Heparin Sodium 5,000 UNIT Q8 05/05 2200 AC 05/06 (Porcine) SC 1430 Influenza Virus 0.5 ML ONCE ONE 05/05 1900 DC 05/05 Vaccine IM 05/05 1901 2008 Lorazepam 1 MG TIDPRN PRN 05/05 1645 AC PO Magnesium Oxide 400 MG ONE ONE 05/05 1830 DC 05/05 PO 05/05 1831 2004 Metoprolol Succinate 12.5 MG DAILY 05/06 1000 AC 05/06 PO 0947 Metoprolol Tartrate 12.5 MG DAILY 05/06 1000 CAN PO Morphine Sulfate 15 MG Q8 05/06 1400 AC 05/06 PO 1432 Morphine Sulfate 2 MG Q4P PRN 05/05 1645 AC IV Oxycodone HCl 15 MG TIDPRN PRN 05/05 1645 AC 05/05 PO 2004 Pneumococcal 0.5 ML ONCE ONE 05/05 1900 DC 05/05 Polyvalent Vaccine IM 05/05 1901 2011 Potassium Chloride 40 MEQ ONCE ONE 05/05 1945 DC 05/05 PO 05/05 1942003 Sodium Chloride 1,000 ML .Q10H 05/05 1615 AC 05/06 IV 1308 Sodium Chloride 1,000 ML BOLUS ONE 05/05 1545 DC 05/05 IV 05/05 1644 1556 Sodium Chloride 1,000 ML BOLUS ONE 05/05 1545 DC 05/05 IV 05/05 1644 1556 Sodium Chloride 1,000 ML BOLUS ONE 05/05 1545 DC / IV 05/05 1644 1556 Sodium Chloride 1,000 ML BOLUS ONE 05/05 1545 DC / IV 05/05 1644 1556 Last 24 Hrs of Lab/[facility] Results Last 24 Hrs of Labs/Mics: Laboratory Tests 05/06/16 0426: Anion Gap 13, Estimated GFR 14 L, Glucose 90, Calcium 7.0 L, Phosphorus 3.9, Magnesium 1.8, Total Bilirubin 0.5, AST 152 H, ALT 62 H, Albumin 2.3 L, CBC w Diff MAN DIFF ORDERED, RBC 3.30 L, MCV 85.9, MCH 29.4, RDW 14.4, MPV 8.0, Gran % 81.8 H, Lymphocytes % 14.8 L, Monocytes % 3.0, Eosinophils % 0, Basophils % 0.4, Absolute Granulocytes 4.4, Segmented Neutrophils 64, Band Neutrophils 10 H , Absolute Lymphocytes 0.8 L, Lymphocytes 23, Monocytes 2, Absolute Monocytes 0.2, Absolute Eosinophils 0, Absolute Basophils 0, Metamyelocytes 1, Platelet Estimate ADEQUATE, Polychromasia 1+, Ovalocytes 1+, PUBS MCHC 34.2 05/05/16 2357: Anion Gap 11, Estimated GFR 13 L, Glucose 99, Calcium 6.8 L, Phosphorus 3.8, Magnesium 1.8, Total Bilirubin 0.5, AST 168 H, ALT 69 H, Albumin 2.5 L 05/05/16 1805: Anion Gap 13, Estimated GFR 13 L, Glucose 111 H, Lactic Acid 1.2, Calcium 6.7 L, Phosphorus 3.5, Magnesium 1.6, Total Bilirubin 0.4, AST 161 H, ALT 63 H, Albumin 2.5 L 05/05/16 1800: Ur Random Creatinine Cancelled, U Random Total Protein Cancelled 05/05/16 1800: Urine Osmolality 368, Ur Random Creatinine 49.2, Ur Random Sodium 74, Ur Random Potassium 18.5, Fraction Sodium Excret 4.7 H 05/05/16 1715: Ur Random Creatinine 52.1, U Random Total Protein 70 H, Protein/Creatinin Ratio 1.3 H 05/05/16 1630: Phosphorus 3.4, Magnesium 1.6, Creatine Kinase 4655 H, Troponin I < 0.01 Microbiology 05/05 1999 LOWER RESP: Respiratory Culture - RES 05/05 1999 LOWER RESP: Gram Stain - RES 05/05 1800 URINE ROUT: Legionella Antigen - COMP 05/05 1800 URINE ROUT: Streptococcus pneumoniae Antigen (M - COMP STREP PNEUMO BACTERIAL AG 05/05 1800 UPPER RESP: Surveillance Culture - RECD 05/05 1800 GI: Surveillance Culture - RECD Assessment/Plan Assessment: Patien appear more alert this morning and is able to answer simple questions. Her whom is present during the interview reports that she is not yet at her mental baseline but is better than when she was admitted yesterday. Nephrology immigration consultant made recommendations to continue current management. Ultrasound of the kidneys did not demonstrate any obstruction. Psych consult was placed, recommendations to follow. She is still held off of her psychiatric medications, recommendations still pending from the psychiatric department. MS Contin extended release was be started today at 15 mg 3 times a day, slowly titrate up over coming days. Strep pneumo antigen was positive, she is continued on ceftriaxone and azithromycin is discontinued. Problem list: -Acute hypoxic respiratory failure -Sepsis -Community-acquired pneumonia -Prerenal acute kidney injury -Positive urine tox screen -Q waves on EKG in inferior leads/V4-V6 Respiratory/infectious disease: Patient was afebrile without leukocytosis upon initial evaluation despite being hypoxic to the "80s "in triage requiring supplemental oxygen via nasal cannula. Strep pneumonia antigen positive. -TRC neb treatments as needed -Ceftriaxone 1 g IV daily -Azithromycin discontinued -Albuterol/ipratropium Cardiovascular: EKG on initial evaluation demonstrated sinus tachycardia with QTc prolongation and Q waves present and inferior leaves and V4-6. Troponin was <0.01. Patient, although altered does admit to left-sided chest pain radiating through to the back. -Telemetry -Metoprolol XL 12.5 mg by mouth daily Renal: Patient found to be severely dehydrated requiring 5+ liters of normal saline intravenous resuscitation prior to being admitted. BUN/creatinine found to be elevated suggestive of a pre-renal acute kidney injury. It was found to be elevated to 4600. -Normal saline at 100 mL per hour -Nephrology consult placed, follow-up recommendations Musculoskeletal: Patient reportedly has a history of long-standing back pain and right hip pain for which she is seen by her primary care physician (Dr. Singh) and treated with opiate narcotics. CPK found to be elevated to 4600. CT CHILD NUTRITION DIRECTOR checked, reported medications are consistent with this report; printed copy is available in the chart. -MS Contin 15mg PO TID started, titrate up to home dose slowly -Oxycodone 15 mg by mouth 3 times a day as needed for pain 4-6 -Morphine 2 mg IV every 4 hours as needed for pain 7-10 Psychiatric: Patient has an extensive history of depression and suicidal ideation without any reported attempts. She was seen by Dr. Hutchinson of [place] for treatment of this initially and has been maintained on her antipsychotic/depression medication regimen for some time by her PCP, which has been reportedly stable. -Bupropion/fluoxetine/olanzapine held for prolonged QTC -Lorazepam 1 mg by mouth 3 times a day as needed -Psychiatric consult placed, follow-up recommendations Pain plan-as above Diet - Regular Diet DVT prophylaxis-subcutaneous heparin Code Status-DNR/DNI per Problem List: 1. Pneumonia 2. Renal failure Pain Ratin Pain Location: Left chest Pain Goal: Pain 4 or less Pain Plan: As noted in plan Tomorrow's Labs & Rationales: Complete blood count ICU bundle Chest x-ray Consulting Request: Consulting Specialty: Psychiatry
[2016-05-06 16:00] VITALS: BP 130/70
--- NOTE | 2016-05-06 17:44 | Cons- Psychiatry ---
Psychiatric Consult Date of Consult: 05/06/16 Reason for Consult: "Severe depression, bipolar disorder" History of Present Illness: HPI: 60-year-old female brought to [facility] emergency department on 05/05/2016 by her for altered mental status. At that time collateral information was obtained from her who stated that the patient 's parents flulike symptoms approximately 2 weeks ago as well as urinary and bowel incontinence. She became disoriented 1 day prior to hospitalization. She was subsequently diagnosed with acute hypoxemic respiratory failure secondary to sepsis due to PNA, LAYA, transaminitis, and lactic acidosis. She was transferred to the ICU where she was interviewed today. Per house staff report she was completely disoriented yesterday but somewhat better this morning after the initiation of antibiotics. She has not been given any of her regular psychotropic medications due to a prolonged QTC at 505 ms. PMH: Please see the H&P for a complete listing Hypertension, Lowback/right hip pain Past Psych History: Unspecified depressive disorder Unspecified bipolar spectrum disorder Opiate use disorder, prescribed By chart history major depression By chart history borderline personality disorder -Outpatient It appears patient receives her psychiatric medications from PCP Dr. David Singh Patient previously been referred to care post crisis evaluation in 2013 is unclear if she kept this appointment -Inpatient Patient is a poor historian but endorses previous inpatient stays at [facility] and [facility], states she has not been to a hospital in " a long time" At least one previous crisis eval in [facility] in February 2014 for visual hallucinations in the context of prolonged opiate and benzodiazepine use. The patient cleared and it was determined is likely an acute confusional state so was discharged with follow-up care. Care. Family Psych History: Patient reports there are several family members with mental health issues, has difficult time elaborating. States her daughter has schizophrenia and autism spectrum disorder and is currently [facility] but is likely talking about her granddaughter. Substance History From previous ED stay endorsed alcoholism which refuted. Treatment Unobtained Family Substance History: Unobtained Social: , lives with spouse. 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 States she has 5 daughters between the age of 8 and 2 years old but is likely speaking of her granddaughters. Reports she grew up in [place] has one brother and one sister. Is presently on disability for depression Abuse/Trauma: Unobtained Current Home Psychotropic Medications: Bupropion XL 300 mg daily Lorazepam 2 mg 3 times a day Prozac 40 mg daily Olanzapine 10 mg daily Current Hospital Psychotropic Medications: Med Lorazepam 1 MG PO TIDPRN PRN 05/05/16 1645 Allergies: Coded Allergies: NO KNOWN ALLERGIES (02/01/14) Current Medications: Med Acetylcysteine 2 ML INH EVERY 4 HRS/AWAKE 05/05/161999 Albuterol Sulfate 3 ML INH EVERY 4 HRS/AWAKE 05/05/16 2000 Ceftriaxone Sodium 1,000 MG IV Q24H 05/06/16 1300 Guaifenesin 600 MG PO Q12 05/05/16 2200 Heparin Sodium (Porcine) 5,000 UNIT SC Q8 05/05/16 2200 Lorazepam 1 MG PO TIDPRN PRN 05/05/16 1645 Metoprolol Succinate 12.5 MG PO DAILY 05/06/16 1000 Morphine Sulfate 2 MG IV Q4P PRN 05/05/16 1645 Morphine Sulfate 15 MG PO Q8 05/06/16 1400 Oxycodone HCl 15 MG PO TIDPRN PRN 05/05/16 1645 Sodium Chloride 1,000 ML IV .Q10H 05/05/16 1615 Past History Past Medical History Cardiovascular: hypertension Musculoskeletal: CHRONIC BACK PAIN Psychiatric: depression Past Surgical History Surgical History: non-contributory Psychosocial History Strengths/Capabilities: Family support Physical Limitations (Interventions): Chronic pain Psychiatric Treatment History Psych Treatment Psychiatric Treatment No (Meds only from PCP) Diagnosis: Major Depression Borderline Personality D/O Risk Factors: chronic/serious med cond., high anxiety/distress, history of suicide atmpts, SA/MH hospitalized Substance Abuse Treatment Comments: The patient is prescribed high opiates and high doses of benzodiazepines Assessment/Plan Mental Status Orientation: Confused, Person Affect: Broad, Variable Speech: WNL Neuro-vegetative: Sleep Disturbance Mental Status Exam: 60-year-old female interviewed lying in bed. Patient is cooperative with evaluation to the best of her ability but has difficulty due to confusion. Frequently responds to questions inappropriately. Unable to name her outpatient treaters unable to state her psychiatric diagnoses but rather says she takes Prozac and olanzapine "just to stay alive." Mental Status Exam Orientation/Presentation: Patient is calm and cooperative. Oriented only to self. States we are at [facility] then corrects herself and states [facility]. Is not oriented to date states today is "the 15th of the 25th." Unable to clarify, unable to state year. Is able to state she is in [place] in the [facility]. Doni he wanted to have Mood: "I'm okay" Affect: Full range Sadness: Denies at present Anxiety: Denies at present Denies SI/HI, AH/VH, PI. States and also believes they will not kill themselves. She does endorse a history of self-harm by cutting in the remote past which led to inpatient hospitalization. Speech: Normal limits Eye contact: Appropriate Thought Process: Confused, tangential at times Judgment/Insight: Impaired Memory/Attention: Unable to recall 3 objects at 1 minute. Unable to spell world backwards. Unable to respond to questions regarding idiom interpretation. [place] abstractions Lab Results: Laboratory Tests EKG on 05/05/2016 sinus tachycardia with borderline prolonged QTC 495ms. 05/06/16 0426: Anion Gap 13, Estimated GFR 14 L, Glucose 90, Calcium 7.0 L, Phosphorus 3.9, Magnesium 1.8, Total Bilirubin 0.5, AST 152 H, ALT 62 H, Albumin 2.3 L, CBC w Diff MAN DIFF ORDERED, RBC 3.30 L, MCV 85.9, MCH 29.4, RDW 14.4, MPV 8.0, Gran % 81.8 H, Lymphocytes % 14.8 L, Monocytes % 3.0, Eosinophils % 0, Basophils % 0.4, Absolute Granulocytes 4.4, Segmented Neutrophils 64, Band Neutrophils 10 H , Absolute Lymphocytes 0.8 L, Lymphocytes 23, Monocytes 2, Absolute Monocytes 0.2, Absolute Eosinophils 0, Absolute Basophils 0, Metamyelocytes 1, Platelet Estimate ADEQUATE, Polychromasia 1+, Ovalocytes 1+, PUBS MCHC 34.2 05/05/16 2357: Anion Gap 11, Estimated GFR 13 L, Glucose 99, Calcium 6.8 L, Phosphorus 3.8, Magnesium 1.8, Total Bilirubin 0.5, AST 168 H, ALT 69 H, Albumin 2.5 L 05/05/16 1805: Anion Gap 13, Estimated GFR 13 L, Glucose 111 H, Lactic Acid 1.2, Calcium 6.7 L, Phosphorus 3.5, Magnesium 1.6, Total Bilirubin 0.4, AST 161 H, ALT 63 H, Albumin 2.5 L 05/05/16 1800: Ur Random Creatinine Cancelled, U Random Total Protein Cancelled 05/05/16 1800: Urine Osmolality 368, Ur Random Creatinine 49.2, Ur Random Sodium 74, Ur Random Potassium 18.5, Fraction Sodium Excret 4.7 H 05/05/16 1715: Ur Random Creatinine 52.1, U Random Total Protein 70 H, Protein/Creatinin Ratio 1.3 H 05/05/16 1630: Phosphorus 3.4, Magnesium 1.6, Creatine Kinase 4655 H, Troponin I < 0.01 05/05/16 1509: Lactic Acid 2.9 H 05/05/16 1255: pH 7.40, pCO2 36, pO2 65 L, HCO3 22, ABG O2 Sat (Measured) 91.0 L, P-50 (Temp Corrected) Y, Carboxyhemoglobin 0.7 L, O2 Concentration % 3L, Temperature 99.4, O2 Delivery Method N/C, Phlebotomy Draw Site RIGHT RADIAL 05/05/16 1220: Urine Opiates Screen > 4000.00 H, Methadone Screen 57, Barbiturate Screen < 60, Ur Phencyclidine Scrn < 6.00, Amphetamines Screen 466, U Benzodiazepines Scrn 159, Urine Cocaine Screen < 50, Urine Cannabis Screen < 5.00, Urinalysis HEAVY H, Urine Color YEL, Urine Clarity HAZY H, Urine pH 6.0, Ur Specific [place] 1.025, Urine Protein 100 H, Urine Ketones NEG, Urine Nitrite NEG, Urine Bilirubin NEG, Urine Urobilinogen 0.2, Ur Leukocyte Esterase NEG, Ur Microscopic SEDIMENT EXAMINED, Urine RBC 5-10 H, Urine WBC 1-3 H, Ur Epithelial Cells RARE , Urine Hemoglobin LARGE H, Urine Glucose NEG 05/05/16 1201: Anion Gap 18 H, Estimated GFR 11 L, BUN/Creatinine Ratio 15.6, Glucose 113 H, Lactic Acid 2.0, Calcium 8.0 L, Total Bilirubin 0.8, AST 206 H, ALT 75 H, Alkaline Phosphatase 74, Ammonia 15, Total Protein 6.5, Albumin 3.5, Globulin 3.0, Albumin/Globulin Ratio 1.2, CBC w Diff MAN DIFF ORDERED, RBC 4.48, MCV 86.8 , MCH 28.8, RDW 13.7, MPV 7.9, Gran % 90.9 H, Lymphocytes % 6.7 L, Monocytes % 1.7, Eosinophils % 0, Basophils % 0.7, Absolute Granulocytes 5.4, Segmented Neutrophils 71, Band Neutrophils 17 H, Absolute Lymphocytes 0.4 L, Lymphocytes 10 L, Monocytes 2, Absolute Monocytes 0.1 L, Absolute Eosinophils 0, Absolute Basophils 0, Normocytic RBCs VERIFIED, Normochromic RBCs VERIFIED, PUBS MCHC 33.2 Microbiology 05/05 1999 LOWER RESP: Respiratory Culture - RES 05/05 1999 LOWER RESP: Gram Stain - RES 05/05 1800 URINE ROUT: Legionella Antigen - COMP 05/05 1800 URINE ROUT: Streptococcus pneumoniae Antigen (M - COMP STREP PNEUMO BACTERIAL AG 05/05 1800 UPPER RESP: Surveillance Culture - RECD 05/05 1800 GI: Surveillance Culture - RECD 05/05 1236 BLOOD: Blood Culture - RES 05/05 1220 URINE ROUT: Urine Culture - RES 05/05 1220 BLOOD: Blood Culture - RES Diffential Diagnosis: Delirium due to multiple etiologies Opiate use disorder, prescribed Sedative hypnotic use disorder, prescribed R/O Unspecified depressive disorder R/O Unspecified bipolar spectrum disorder By chart history major depression By chart history borderline personality disorder Impression: 60-year-old female presents with acute confusional state in the context of multiple medical insults as well as chronic opiate and benzodiazepine use. She also reportedly recently started taking Vesicare which is known to have strong anticholinergic properties. All are likely contributing to current alterations in mental status. Additionally the patient has been prescribed 6 mg of Ativan daily, it is unknown if she was taking full amount but she has high risk for withdrawal delirium if not adequately medicated. Per her chart and per patient report she does have a history of serious mental illness with multiple hospitalizations currently only apparently being treated by her primary care provider. At present her prolonged QTc interval provides a challenge for psychotropic medication recommendations. Provisional Treatment Plan: 1. Please continue CIWA protocol and medicate appropriately. 2. We have contacted pharmacy for recommendations regarding psychotropic medication that may be more appropriate given patients prolonged QTC, they are planning on responding with recommendations as soon as possible. We appreciate their input for medication. 3. Please continue to monitor EKG.This patient may require cardiac clearance prior to initiation of psychotropic meds. 4. Please continue to avoid benzodiazepines, opioid analgesics, and meds with strong anticholinergic properties as much as possible to prevent further confusion. 5. Please initiate the following nonpharmacologic interventions: -Avoid nursing and medical procedures during sleep hours whenever possible - Cluster at night interventions that must be completed as much as possible to minimize sleep disruption - Decrease noise in patient area during sleeping hours - Reduce lighting at night - Ensure patient has any sensory aids close by that he regularly uses 6. Please start melatonin 5 mg qhs to help regulate sleep wake cycle. 7. Obtain collateral from for full psychiatric history. 8. If determined that patient is indeed receiving all psychiatric care from primary care as it presently appears she may benefit from referral to an outpatient psych provider. Thank you for including psychiatry in this case we will continue to follow. Jose Cruz Reddy APRN, pager [phone]
--- NOTE | 2016-05-06 17:53 | NUR ---
@1600-PT ALERT AND CONFUSED. CONT ATTEMPTS TO GET OOB. ALYSIA IN PLACE. ANXIOUS-MEDICATED WITH PRN ATIVAN PO. CONT ON NC. RHONCHI AUSCULTATED. NEBS Q4HRS. AYDIN COUGH NOTED. IV ROCEPHIN CONT. GENMED HOLD. HR 90S. BP STABLE. NO GI DISTRESS NOTED.ALMARAZ IN PLACE, ADEQUATE OUTPUT NOTED. SKIN INTACT. IVF INFUSING. @1700- AT BEDSIDE QUESTIONING PTS MED REGIMEN COMPARED TO WHAT SHE TAKES AT HOME. THIS RN WILL GO OVER MED LIST WITH AND REFER TO HOUSESTAFF WITH ANY NEEDED CHANGES. CONT TO MONITOR CLOSELY. CALL [facility] WITHIN REACH.
--- NOTE | 2016-05-06 20:23 | NUR ---
PT GEN MED HOLD. PT ALERT, DISORIENTED TO TIME AND PLACE DESPITE FREQUENT REORIENTATION. SOFT BILATERAL WRIST RESTRAINTS APPLIED AT 1920 KEPT PULLING AT IV'S, 02, ALMARAZ. ALYSIA VEST ON. RHONCI BREATH SOUNDS WITH INS/EXP WHEEZES THOUGHOUT BILATERLLY. NO COUGH, SOB OR RESP DISTRESS NOTED AT PRESENT. VS STABLE AT PRESENT. ABD SOFT, NONTENDER, NONDISTENDED, POSITIVE BOWEL SOUNDS. ALMARAZ IN PLACE-DRAINING ADEQUTE AMT OF CLEAR YELLOW URINE AT PRESENT. SKIN INTACT
--- NOTE | 2016-05-06 22:15 | Event Note ---
Event Note Event Note: I spoke with her daughter, laila, who called in ICU for her mother. I explained and updated her about her mother's medical condition. She wants to be updated in future. Her contact number is [phone].
[2016-05-07] VITALS: BP 142/78
[2016-05-07 05:38] LABS: ABSOLUTE BASOPHIL COUNT 0 /CUMM (0.0-0.2); ABSOLUTE EOSINOPHIL COUNT 0 /CUMM (0.0-0.7); ABSOLUTE GRANULOCYTE CT 4.5 /CUMM (1.4-6.5); ABSOLUTE LYMPH COUNT 1.3 /CUMM (1.2-3.4); ABSOLUTE MONOCYTE COUNT 0.2 /CUMM (0.10-0.60); BASOPHIL % 0.5 % (0.0-2.0); EOSINOPHIL % 0.2 % (0-5); GRANULOCYTE % 73.8 % (42.2-75.2); HEMATOCRIT 29.1 % (37-47); MEAN CORPUSCULAR HGB 29.2 PG (27.0-31.0); MEAN CORPUSCULAR VOLUME 85.9 FL (81.0-99.0); MEAN PLATELET VOLUME 7.9 FL (7.4-10.4); PLATELET COUNT 224 /CUMM (130-400); RBC DISTRIBUTION WIDTH 14.6 % (11.5-14.5); RED BLOOD CELL CT 3.39 /CUMM (4.20-5.40); WHITE BLOOD CELL COUNT 6.1 /CUMM (4.8-10.8)
--- NOTE | 2016-05-07 07:05 | NUR ---
PT SLEPT MOST OF NIGHT. REMAINS IN A ALYSIA VEST. PT MORE COOPERATIVE, FOLLOWING COMMANDS AND EASILY REDIRECTABLE-DISCONTINUED SOFT BILATERAL WRIST RESTRAINTS AT 0400. C/O BACK, LT SIDE PAIN-STATED GOOD PAIN RELIEF FROM MS CONTIN. BREATH SOUNDS REMAINS THONCI WITH INS/EXP WHEEZES. NONPRODUCTIVE COUGH NOTED. NO SOB OR RESP DISTRESS NOTED THOUGHOUT SHIFT. ALMARAZ DRAINING LG AMT OF CLEAR YELLOW URINE. SKIN INTACT
[2016-05-07 08:00] VITALS: BP 128/70
--- NOTE | 2016-05-07 08:06 | RADIOLOGY REPORT ---
EXAMINATION: XR PORTABLE CHEST CLINICAL INFORMATION: Hypoxia. Tachypnea. COMPARISON: 05/05/2016 TECHNIQUE: Portable view of the chest was obtained. FINDINGS: The lungs are well expanded. Multifocal airspace opacities are again noted, as seen on prior radiograph and CT. These are seen bilaterally throughout the lungs. No pleural effusion or pneumothorax. The cardiomediastinal silhouette is within normal limits. No acute osseous abnormality. IMPRESSION: Multifocal airspace opacity again noted, most consistent with multifocal pneumonia. Overall this is similar to previous.
--- NOTE | 2016-05-07 10:21 | PN- Housestaff ---
LETA CHAND MD 05/07/16 1021: Subjective Follow-up For: Community Acquired Pneumonia Acute Kidney Injury History of Depression Subjective: Patient seen and examined. She is seen sitting upright in bed resting comfortably. She appears to be in no acute distress. At her bedside is her . She reports that she slept well last night and does not remember much about the last week or so. Her reports that the patient looks "much better" today. Otherwise she denies any headache, fever, chills, chest pain, palpitations, increased shortness of breath, nausea, vomiting, diarrhea. No overnight events reported. Review of Systems Constitutional: Reports: see HPI. Objective Last 24 Hrs of Vital Signs/I&O Vital Signs Date Time Temp Pulse Resp B/P Pulse O2 O2 Flow FiO2 Ox Delivery Rate 05/07 1948 100.0 73 20 132/70 91 05/07 1748 94 Nasal 3.0L Cannula 05/07 1600 95 Nasal 3.0L Cannula 05/07 1600 99.9 100 24 140/80 94 Nasal 3.0L Cannula 05/07 1530 98.0 05/07 0932 95 Nasal 3.0L Cannula 05/07 0916 74 128/70 05/07 0800 96 Nasal 3.0L Cannula 05/07 0800 97.8 74 20 128/70 96 Nasal 3.0L Cannula 05/07 0000 92 Nasal 3.0L Cannula 05/07 0000 99.4 78 20 142/78 92 Nasal 3.0L Cannula Intake & Output 05/07 1600 05/07 0800 01 0000 Intake Total 1360 1130 694 Output Total 1850 1150 1350 Balance -490 -20 -656 Intake, IV 800 770 574 Intake, Oral 560 360 120 Number 1 0 0 Bowel Movements Output, Urine 1850 1150 1350 Physical Exam General Appearance: Alert, Oriented X3, Cooperative, No Acute Distress Other Physical Findings: General - Well developed, well nourished middle aged female in no acute distress with a rosa m restraint in place HEENT - NCAT, PERRL, EOMI, anicteric sclera CVS - S1, S2 w/o m/g/r Resp - Bibasilar crackles with minimal diffuse rhonchi GI - soft, nontender, nondistended, bowel sounds present Neuro - awake and alert, appropriate with good insight and judgment, CN II-XII grossly intact Ext - pulses 2+ bilaterally Current Medications: Current Medications Sig/Jeff Start time Last Medication Dose Route Stop Time Status Admin Acetylcysteine 2 ML EVERY 4 HRS/AWAKE 05/05 1999 AC 05/07 INH 1735 Albuterol Sulfate 3 ML EVERY 4 HRS/AWAKE 05/05 1999 AC 05/07 INH 1535 Bupropion HCl 150 MG BID 05/07 1045 AC 05/07 PO 1128 Ceftriaxone Sodium 1,000 MG Q24H 05/06 1300 AC 05/07 IV 1330 Fluoxetine HCl 40 MG DAILY 05/07 1046 AC 05/07 PO 1212 Guaifenesin 600 MG Q12 05/05 2200 AC 05/07 PO 0916 Heparin Sodium 5,000 UNIT Q8 05/05 220 AC 05/07 (Porcine) SC 1334 Lorazepam 1 MG TIDPRN PRN 05/05 1645 AC 05/07 PO 1644 Magnesium Oxide 400 MG ONE ONE 05/07 0730 DC 05/07 PO 05/07 0731 0916 Melatonin 5 MG AT BEDTIME 05/06 2200 AC 05/06 PO 2133 Metoprolol Succinate 12.5 MG DAILY 05/06 1000 AC 05/07 PO 0916 Morphine Sulfate 30 MG Q8 05/07 1400 AC 05/07 PO 1358 Morphine Sulfate 15 MG Q8 05/06 1400 DC 05/07 PO 0533 Morphine Sulfate 2 MG Q4P PRN 05/05 1645 AC 05/07 IV 1644 Olanzapine 10 MG 0800 05/07 1100 AC 05/07 PO 1211 Oxycodone HCl 15 MG TIDPRN PRN 05/05 1645 AC 05/05 PO 2004 Sodium Chloride 1,000 ML .Q10H 05/05 1615 AC 05/07 IV 0916 Last 24 Hrs of Lab/[facility] Results Last 24 Hrs of Labs/Mics: Laboratory Tests 05/07/16 0431: Anion Gap 12, Estimated GFR 19 L, Glucose 97, Calcium 7.8 L, Phosphorus 3.5, Magnesium 1.7, Total Bilirubin 0.6, AST 137 H, ALT 64 H, Albumin 2.4 L, CBC w Diff NO MAN DIFF REQ, RBC 3.39 L, MCV 85.9, MCH 29.2, RDW 14.6 H, MPV 7.9, Gran % 73.8, Lymphocytes % 21.9, Monocytes % 3.6, Eosinophils % 0.2, Basophils % 0.5, Absolute Granulocytes 4.5, Absolute Lymphocytes 1.3, Absolute Monocytes 0.2 , Absolute Eosinophils 0, Absolute Basophils 0, PUBS MCHC 34.0 Assessment/Plan Assessment: Patient continues to appear alert in the morning, but by dinner time she seems to be more confused. Her kidney function is improving day over day with intravenous fluids. EKG done this morning demonstrated near normalization of her QTc interval, for which we subsequently restarted her psychiatric medications. MS contin continues to be titrated up towards his home dose. She remains on intravenous antibiotics. Problem list: -Acute hypoxic respiratory failure -Sepsis -Community-acquired pneumonia -Prerenal acute kidney injury -Positive urine tox screen -Q waves on EKG in inferior leads/V4-V6 Respiratory/infectious disease: Patient was afebrile without leukocytosis upon initial evaluation despite being hypoxic to the "80s "in triage requiring supplemental oxygen via nasal cannula. Strep pneumonia antigen positive. -TRC neb treatments as needed -Ceftriaxone 1 g IV daily -Azithromycin discontinued -Albuterol/ipratropium Cardiovascular: EKG on initial evaluation demonstrated sinus tachycardia with QTc prolongation and Q waves present and inferior leaves and V4-6. Troponin was <0.01. Patient, although altered does admit to left-sided chest pain radiating through to the back. -Telemetry -Metoprolol XL 12.5 mg by mouth daily Renal: Patient found to be severely dehydrated requiring 5+ liters of normal saline intravenous resuscitation prior to being admitted. BUN/creatinine found to be elevated suggestive of a pre-renal acute kidney injury. It was found to be elevated to 4600. -Normal saline at 100 mL per hour -Nephrology consult placed, follow-up recommendations Musculoskeletal: Patient reportedly has a history of long-standing back pain and right hip pain for which she is seen by her primary care physician (Dr. Singh) and treated with opiate narcotics. CPK found to be elevated to 4600. CT MOMD TEACHER checked, reported medications are consistent with this report; printed copy is available in the chart. -MS Contin 15mg PO TID started, titrate up to home dose slowly -Oxycodone 15 mg by mouth 3 times a day as needed for pain 4-6 -Morphine 2 mg IV every 4 hours as needed for pain 7-10 Psychiatric: Patient has an extensive history of depression and suicidal ideation without any reported attempts. She was seen by Dr. Hutchinson of [place] for treatment of this initially and has been maintained on her antipsychotic/depression medication regimen for some time by her PCP, which has been reportedly stable. -Bupropion/fluoxetine/olanzapine restarted -Lorazepam 1 mg by mouth 3 times a day as needed -Psychiatric consult placed, follow-up recommendations Pain plan-as above Diet - Regular Diet DVT prophylaxis-subcutaneous heparin Code Status-DNR/DNI per Problem List: 1. Psychosis 2. Idiosyncratic reaction to medication after proper dose 3. Pneumonia 4. Renal failure Pain Ratin Pain Location: None Pain Goal: Pain 4 or less Pain Plan: As noted in plan Tomorrow[facility] Labs & Rationales: CBC BEP Consulting Request: Consulting Specialty: Psychiatry TYRELL GANDARA MD 05/07/16 1536: Attending MD Review Statement Attending Statement Attending MD Statement: examined this patient, discuss w/resident/PA/FIRE OBSERVER, agreed w/resident/PA/FIRE OBSERVER, reviewed EMR data (avail), discussed with nursing Attending Assessment/Plan: Patient is more awake and alert but as per the not back to her baseline. She is a 60-year-old who is here with severe pneumococcal pneumonia with acute hypoxemic respiratory failure and acute renal failure. Her creatinine is improving albeit slowly. We'll continue hydration per renal, breast slowly restarting her usual opiate medications. Psych follow-up about her psychiatric medications. Out of bed as tolerated and will follow-up.
--- NOTE | 2016-05-07 12:20 | PN- Nephrology ---
Assessment/Plan Assessment: 1. Acute kidney injury - prerenal versus ATN - gradually resolving 2. Multilobar pneumococcal pneumonia Suggestion: 1. Continue hydration with IV normal saline at 100 mL per hour 2. Monitor intake and output, chemistries daily Subjective Subjective: Patient looks and feels slightly better today. Renal function is slowly improving but not dramatically so. Blood cultures negative. Patient on ceftriaxone. Objective Vital Signs and I&Os Vital Signs Date Time Temp Pulse Resp B/P Pulse O2 O2 Flow FiO2 Ox Delivery Rate 05/07 0932 95 Nasal 3.0L Cannula 05/07 0916 74 128/70 05/07 0800 96 Nasal 3.0L Cannula 05/07 0800 97.8 74 20 128/70 96 Nasal 3.0L Cannula 05/07 0000 92 Nasal 3.0L Cannula 05/07 0000 99.4 78 20 142/78 92 Nasal 3.0L Cannula 05/06 1715 93 Room Air Room Air 05/06 1600 98 Nasal 3.0L Cannula 05/06 1600 99.0 96 22 130/70 98 Nasal 3.0L Cannula Intake & Output 05/07 1600 05/07 0400 05/06 1600 05/06 0400 05/05 1600 05/05 0400 Intake Total 8319 380 4727 1787 3000 Output Total 1150 1350 1345 495 320 Balance -20 -906 692 7528 2680 Intake, IV 150 280 4895 1547 3000 Intake, Oral 360 120 480 240 Number 0 0 1 0 Bowel Movements Output, Urine 1150 1350 1345 495 320 Patient 160 lb 135 lb 165 lb Weight Physical Exam: General: Well-developed white female in NAD Skin: No rash or jaundice HEENT: Conjunctivae pink, sclerae anicteric, pupils dilated, mucous membranes dry Neck: Without masses or thyromegaly, no supraclavicular or cervical adenopathy Chest: Wheezes and rhonchi bilaterally Heart: Regular rate and rhythm without S3 or rub Abdomen: Soft and nontender without palpable masses or organomegaly Extremities: Without cyanosis or edema Neuro: No focal findings, no asterixis or myoclonus; more alert today Results Pertinent Lab Results: Laboratory Tests 05/07 05/06 0431 0426 Chemistry Sodium (137 - 145 mmol/L) 141 141 Potassium (3.5 - 5.1 mmol/L) 3.9 4.0 Chloride (98 - 107 mmol/L) 106 107 Carbon Dioxide (22 - 30 mmol/L) 22 20 L Anion Gap (5 - 16) 12 13 BUN (7 - 17 mg/dL) 42 H 54 H Creatinine (0.5 - 1.0 mg/dL) 2.6 H 3.3 H Estimated GFR (>60 ml/min) 19 L 14 L Glucose (65 - 99 mg/dL) 97 90 Calcium (8.4 - 10.2 mg/dL) 7.8 L 7.0 L Phosphorus (2.5 - 4.5 mg/dL) 3.5 3.9 Magnesium (1.6 - 2.3 mg/dL) 1.7 1.8 Total Bilirubin (0.2 - 1.3 mg/dL) 0.6 0.5 AST (14 - 36 U/L) 137 H 152 H ALT (9 - 52 U/L) 64 H 62 H Albumin (3.5 - 5.0 g/dL) 2.4 L 2.3 L Hematology CBC w Diff NO MAN DIFF REQ MAN DIFF ORDERED WBC (4.8 - 10.8 /CUMM) 6.1 5.4 RBC (4.20 - 5.40 /CUMM) 3.39 L 3.30 L Hgb (12.0 - 16.0 G/DL) 9.9 L 9.7 L Hct (37 - 47 %) 29.1 L 28.3 L MCV (81.0 - 99.0 FL) 85.9 85.9 MCH (27.0 - 31.0 PG) 29.2 29.4 RDW (11.5 - 14.5 %) 14.6 H 14.4 Plt Count (130 - 400 /CUMM) 224 193 MPV (7.4 - 10.4 FL) 7.9 8.0 Gran % (42.2 - 75.2 %) 73.8 81.8 H Lymphocytes % (20.5 - 51.1 %) 21.9 14.8 L Monocytes % (1.7 - 9.3 %) 3.6 3.0 Eosinophils % (0 - 5 %) 0.2 0 Basophils % (0.0 - 2.0 %) 0.5 0.4 Absolute Granulocytes (1.4 - 6.5 /CUMM) 4.5 4.4 Segmented Neutrophils (42.2 - 75.2 %) 64 Band Neutrophils (0.0 - 5.0 %) 10 H Absolute Lymphocytes (1.2 - 3.4 /CUMM) 1.3 0.8 L Lymphocytes (20.5 - 51.1 %) 23 Monocytes (1.7 - 9.3 %) 2 Absolute Monocytes (0.10 - 0.60 /CUMM) 0.2 0.2 Absolute Eosinophils (0.0 - 0.7 /CUMM) 0 0 Absolute Basophils (0.0 - 0.2 /CUMM) 0 0 Metamyelocytes (0.0 - 1.0 %) 1 Platelet Estimate (ADEQUATE) ADEQUATE Polychromasia 1+ Ovalocytes 1+ PUBS MCHC (33.0 - 37.0 G/DL) 34.0 34.2 05/05 05/05 05/05 05/05 05/05 2357 1805 1800 1800 1715 Chemistry Sodium (137 - 145 mmol/L) 139 141 Potassium (3.5 - 5.1 mmol/L) 3.9 3.4 L Chloride (98 - 107 mmol/L) 107 108 H Carbon Dioxide (22 - 30 mmol/L) 21 L 20 L Anion Gap (5 - 16) 11 13 BUN (7 - 17 mg/dL) 56 H 55 H Creatinine (0.5 - 1.0 mg/dL) 3.5 H 3.6 H Estimated GFR (>60 ml/min) 13 L 13 L Glucose (65 - 99 mg/dL) 99 111 H Lactic Acid (0.7 - 2.1 mmol/L) 1.2 Calcium (8.4 - 10.2 mg/dL) 6.8 L 6.7 L Phosphorus (2.5 - 4.5 mg/dL) 3.8 3.5 Magnesium (1.6 - 2.3 mg/dL) 1.8 1.6 Total Bilirubin (0.2 - 1.3 mg/dL) 0.5 0.4 AST (14 - 36 U/L) 168 H 161 H ALT (9 - 52 U/L) 69 H 63 H Albumin (3.5 - 5.0 g/dL) 2.5 L 2.5 L Urines Urine Osmolality (300 - 1000 MOSM/KG) 368 Ur Random Creatinine (mg/dL) Cancelled 49.2 52.1 U Random Total Protein (0 - 12 mg/dL) Cancelled 70 H Ur Random Sodium (30 - 90 mmol/L) 74 Ur Random Potassium (mmol/L) 18.5 Protein/Creatinin Ratio (< 0.2) 1.3 H Fraction Sodium Excret (<1% %) 4.7 H 05/05 05/05 05/05 1630 1509 1255 Blood Gas pH (7.35 - 7.45 PH) 7.40 pCO2 (35 - 45 TORR) 36 pO2 (80 - 100 TORR) 65 L HCO3 (21 - 28 MEQ/L) 22 ABG O2 Sat (Measured) (>96.0 %) 91.0 L P-50 (Temp Corrected) Y Carboxyhemoglobin (1.5 - 5.0 %) 0.7 L O2 Concentration % 3L Temperature (97.0 - 100.0 FARH) 99.4 O2 Delivery Method N/C Chemistry Lactic Acid (0.7 - 2.1 mmol/L) 2.9 H Phosphorus (2.5 - 4.5 mg/dL) 3.4 Magnesium (1.6 - 2.3 mg/dL) 1.6 Creatine Kinase (30 - 135 U/L) 4655 H Troponin I (< 0.11 ng/ml) < 0.01 Miscellaneous Phlebotomy Draw Site RIGHT RADIAL 05/05 05/05 1220 1201 Chemistry Sodium (137 - 145 mmol/L) 139 Potassium (3.5 - 5.1 mmol/L) 3.5 Chloride (98 - 107 mmol/L) 97 L Carbon Dioxide (22 - 30 mmol/L) 24 Anion Gap (5 - 16) 18 H BUN (7 - 17 mg/dL) 67 H Creatinine (0.5 - 1.0 mg/dL) 4.3 H Estimated GFR (>60 ml/min) 11 L BUN/Creatinine Ratio (7 - 25 %) 15.6 Glucose (65 - 99 mg/dL) 113 H Lactic Acid (0.7 - 2.1 mmol/L) 2.0 Calcium (8.4 - 10.2 mg/dL) 8.0 L Total Bilirubin (0.2 - 1.3 mg/dL) 0.8 AST (14 - 36 U/L) 206 H ALT (9 - 52 U/L) 75 H Alkaline Phosphatase (<127 U/L) 74 Ammonia (9 - 30 umol/L) 15 Total Protein (6.3 - 8.2 g/dL) 6.5 Albumin (3.5 - 5.0 g/dL) 3.5 Globulin (1.9 - 4.2 gm/dL) 3.0 Albumin/Globulin Ratio (1.1 - 2.2 %) 1.2 Hematology CBC w Diff MAN DIFF ORDERED WBC (4.8 - 10.8 /CUMM) 6.0 RBC (4.20 - 5.40 /CUMM) 4.48 Hgb (12.0 - 16.0 G/DL) 12.9 Hct (37 - 47 %) 38.8 MCV (81.0 - 99.0 FL) 86.8 MCH (27.0 - 31.0 PG) 28.8 RDW (11.5 - 14.5 %) 13.7 Plt Count (130 - 400 /CUMM) 216 MPV (7.4 - 10.4 FL) 7.9 Gran % (42.2 - 75.2 %) 90.9 H Lymphocytes % (20.5 - 51.1 %) 6.7 L Monocytes % (1.7 - 9.3 %) 1.7 Eosinophils % (0 - 5 %) 0 Basophils % (0.0 - 2.0 %) 0.7 Absolute Granulocytes (1.4 - 6.5 /CUMM) 5.4 Segmented Neutrophils (42.2 - 75.2 %) 71 Band Neutrophils (0.0 - 5.0 %) 17 H Absolute Lymphocytes (1.2 - 3.4 /CUMM) 0.4 L Lymphocytes (20.5 - 51.1 %) 10 L Monocytes (1.7 - 9.3 %) 2 Absolute Monocytes (0.10 - 0.60 /CUMM) 0.1 L Absolute Eosinophils (0.0 - 0.7 /CUMM) 0 Absolute Basophils (0.0 - 0.2 /CUMM) 0 Normocytic RBCs VERIFIED Normochromic RBCs VERIFIED PUBS MCHC (33.0 - 37.0 G/DL) 33.2 Toxicology Urine Opiates Screen (>2000 NG/ML) > 4000.00 H Methadone Screen (>300 NG/ML) 57 Barbiturate Screen (>200 NG/ML) < 60 Ur Phencyclidine Scrn (>25 NG/ML) < 6.00 Amphetamines Screen (>1000 NG/ML) 466 U Benzodiazepines Scrn (>200 NG/ML) 159 Urine Cocaine Screen (>300 NG/ML) < 50 Urine Cannabis Screen (>50 NG/ML) < 5.00 Urines Urinalysis HEAVY H Urine Color (YEL,AMB,STR) YEL Urine Clarity (CLEAR) HAZY H Urine pH (5.0 - 8.0) 6.0 Ur Specific [place] (1.001 - 1.035) 1.025 Urine Protein (NEG,<30 MG/DL) 100 H Urine Ketones (NEG) NEG Urine Nitrite (NEG) NEG Urine Bilirubin (NEG) NEG Urine Urobilinogen (0.1 - 1.0 EU/dl) 0.2 Ur Leukocyte Esterase (NEG) NEG Ur Microscopic SEDIMENT EXAMINED Urine RBC (0 - 5 /HPF) 5-10 H Urine WBC (0 - 2 /HPF) 1-3 H Ur Epithelial Cells (NONE,FEW) RARE Urine Hemoglobin (NEG) LARGE H Urine Glucose (N MG/DL) NEG
[2016-05-07 16:00] VITALS: BP 140/80
[2016-05-07 19:48] VITALS: BP 132/70
[2016-05-08 00:32] VITALS: BP 138/80
--- NOTE | 2016-05-08 01:07 | NUR ---
NURSE NOTE: PT ARRIVED TO FLOOR AROUND 1939 FROM ICU. PT ESCORTED BY TRANSPORT. PT IN ALYSIA VEST. PT AAOX1-2, CONFUSED. VITALS ARE STABLE. WILL CONTINTOR TO MONITOR PT AND OFFER T&R, FLUIDS, AND BATHROOM.
[2016-05-08 07:11] VITALS: BP 128/82
[2016-05-08 08:20] LABS: ABSOLUTE BASOPHIL COUNT 0 /CUMM (0.0-0.2); ABSOLUTE EOSINOPHIL COUNT 0 /CUMM (0.0-0.7); ABSOLUTE GRANULOCYTE CT 6.7 /CUMM (1.4-6.5); ABSOLUTE LYMPH COUNT 1.4 /CUMM (1.2-3.4); ABSOLUTE MONOCYTE COUNT 0.3 /CUMM (0.10-0.60); BASOPHIL % 0.4 % (0.0-2.0); EOSINOPHIL % 0.5 % (0-5); GRANULOCYTE % 78.6 % (42.2-75.2); HEMATOCRIT 29.8 % (37-47); MEAN CORPUSCULAR HGB 29.2 PG (27.0-31.0); MEAN CORPUSCULAR VOLUME 85.8 FL (81.0-99.0); MEAN PLATELET VOLUME 7.9 FL (7.4-10.4); PLATELET COUNT 287 /CUMM (130-400); RBC DISTRIBUTION WIDTH 14.8 % (11.5-14.5); RED BLOOD CELL CT 3.48 /CUMM (4.20-5.40); WHITE BLOOD CELL COUNT 8.5 /CUMM (4.8-10.8)
--- NOTE | 2016-05-08 08:41 | PN- Housestaff ---
JOSELYN SAMANIEGO,[facility] 05/08/16 0841: Subjective Follow-up For: -Community-acquired pneumonia -Prerenal acute kidney injury Subjective: Patient seen and examined this morning. She was lying in bed wearing a [place]. She has been afebrile without leukocytosis, she still has her productive cough, there was no complaints. Review of Systems Constitutional: Reports: see HPI. Objective Last 24 Hrs of Vital Signs/I&O Vital Signs Date Time Temp Pulse Resp B/P Pulse O2 O2 Flow FiO2 Ox Delivery Rate 05/08 1701 94 Room Air 05/08 1555 98.1 79 19 120/70 93 05/08 1032 66 128/82 05/08 0746 91 Room Air Room Air 05/08 0711 99.0 66 18 128/82 94 Nasal 3.0L Cannula 05/08 0032 99.2 77 19 138/80 96 Nasal 3.0L Cannula 05/08 0000 Nasal 3.0L Cannula 05/07 1948 100.0 73 20 132/70 91 05/07 1748 94 Nasal 3.0L Cannula Intake & Output 05/08 1600 05/08 0800 05/08 0000 Intake Total 1280 1280 480 Output Total 100 Balance 1280 1180 480 Intake, IV 800 800 Intake, Oral 480 480 480 Output, Urine 100 Physical Exam General Appearance: Alert, Oriented X3, No Acute Distress Cardiovascular: Regular Rate, Normal S1, Normal S2, No Murmurs Lungs: b/l wheezing in mid and lower zones Abdomen: Normal Bowel Sounds, Soft, No Tenderness Extremities: No Clubbing, No Cyanosis, No Edema Current Medications: Current Medications Sig/Jeff Start time Last Medication Dose Route Stop Time Status Admin Acetylcysteine 2 ML EVERY 4 HRS/AWAKE 05/05 1999 DC 05/07 INH 2229 Albuterol Sulfate 3 ML EVERY 4 HRS/AWAKE 05/05 1999 AC 05/08 INH 1620 Bupropion HCl 150 MG BID 05/07 1045 AC 05/08 PO 1032 Ceftriaxone Sodium 1,000 MG Q24H 05/06 1300 AC 05/08 IV 1353 Fluoxetine HCl 40 MG DAILY 05/07 1046 AC 05/08 PO 1032 Guaifenesin 600 MG Q12 05/05 2200 AC 05/08 PO 1032 Heparin Sodium 5,000 UNIT Q8 05/05 2199 AC 05/08 (Porcine) SC 1353 Lorazepam 1 MG TIDPRN PRN 05/05 1645 AC 05/07 PO 1644 Melatonin 5 MG AT BEDTIME 05/06 2200 AC 05/07 PO 2300 Methylprednisolone 60 MG ONCE ONE 05/08 1030 DC 05/08 IV 05/08 1031 1139 Metoprolol Succinate 12.5 MG DAILY 05/06 1000 AC 05/08 PO 1032 Morphine Sulfate 30 MG Q8 05/07 1400 AC 05/08 PO 1353 Morphine Sulfate 2 MG Q4P PRN 05/05 1645 AC 05/07 IV 1644 Olanzapine 10 MG 0800 05/07 1100 AC 05/08 PO 1032 Oxycodone HCl 15 MG TIDPRN PRN 05/05 1645 AC 05/05 PO 2004 Sodium Chloride 1,000 ML .[id number] 05/05 1615 AC 05/08 IV 1353 Last 24 Hrs of Lab/[facility] Results Last 24 Hrs of Labs/Mics: Laboratory Tests 05/08/16 0645: Anion Gap 14, Estimated GFR 24 L, BUN/Creatinine Ratio 14.3, CBC w Diff NO MAN DIFF REQ, RBC 3.48 L, MCV 85.8, MCH 29.2, RDW 14.8 H, MPV 7.9, Gran % 78.6 H, Lymphocytes % 16.7 L, Monocytes % 3.8, Eosinophils % 0.5, Basophils % 0.4, Absolute Granulocytes 6.7 H, Absolute Lymphocytes 1.4, Absolute Monocytes 0.3, Absolute Eosinophils 0, Absolute Basophils 0, PUBS MCHC 34.0 Assessment/Plan Assessment: Patient continues to appear alert in the morning, but by dinner time she seems to be more confused. Her kidney function is improving day over day with intravenous fluids. EKG done this morning demonstrated near normalization of her QTc interval, for which we subsequently restarted her psychiatric medications. MS contin continues to be titrated up towards his home dose. She remains on intravenous antibiotics. Problem list: -Acute hypoxic respiratory failure -Sepsis -Community-acquired pneumonia -Prerenal acute kidney injury -Positive urine tox screen -Q waves on EKG in inferior leads/V4-V6 Respiratory/infectious disease: Patient was afebrile without leukocytosis upon initial evaluation despite being hypoxic to the "80s "in triage requiring supplemental oxygen via nasal cannula. Strep pneumonia antigen positive. -TRC neb treatments as needed -Ceftriaxone 1 g IV daily -started on IV salmeterol -Albuterol/ipratropium Cardiovascular: EKG on initial evaluation demonstrated sinus tachycardia with QTc prolongation and Q waves present and inferior leaves and V4-6. Troponin was <0.01. Patient, although altered does admit to left-sided chest pain radiating through to the back. -Metoprolol XL 12.5 mg by mouth daily Renal: Patient found to be severely dehydrated requiring 5+ liters of normal saline intravenous resuscitation prior to being admitted. BUN/creatinine found to be elevated suggestive of a pre-renal acute kidney injury. It was found to be elevated to 4600. -Normal saline at 75 mL per hour -Nephrology consult placed, follow-up recommendations Musculoskeletal: Patient reportedly has a history of long-standing back pain and right hip pain for which she is seen by her primary care physician (Dr. Singh) and treated with opiate narcotics. CPK found to be elevated to 4600. CT TRUCK CHAUFFEUR checked, reported medications are consistent with this report; printed copy is available in the chart. -MS Contin 15mg PO TID started, titrate up to home dose slowly -Oxycodone 15 mg by mouth 3 times a day as needed for pain 4-6 -Morphine 2 mg IV every 4 hours as needed for pain 7-10 Psychiatric: Patient has an extensive history of depression and suicidal ideation without any reported attempts. She was seen by Dr. Hutchinson of [place] for treatment of this initially and has been maintained on her antipsychotic/depression medication regimen for some time by her PCP, which has been reportedly stable. -Bupropion/fluoxetine/olanzapine restarted -Lorazepam 1 mg by mouth 3 times a day as needed -Psychiatric consult placed, follow-up recommendations Pain plan-as above Diet - Regular Diet DVT prophylaxis-subcutaneous heparin Code Status-DNR/DNI per Problem List: 1. Renal failure 2. Pneumonia Pain Ratin Pain Location: none Pain Goal: Remain pain free Pain Plan: -MS Contin 15mg PO TID started, titrate up to home dose slowly -Oxycodone 15 mg by mouth 3 times a day as needed for pain 4-6 -Morphine 2 mg IV every 4 hours as needed for pain 7-10 Tomorrow's Labs & Rationales: bep for lytes monitoring Consulting Request: Consulting Specialty: Psychiatry DENA CLARK MD 05/08/16 1156: Attending MD Review Statement Attending Statement Attending MD Statement: examined this patient, discuss w/resident/PA/MUFFLER HAND, agreed w/resident/PA/MUFFLER HAND, reviewed EMR data (avail), discussed with nursing, discussed with case mgmt, amended to note Attending Assessment/Plan: Patient seen and examined. Alert and oriented 3. Lethargic but not confused. Cooperative. She reports feeling better. Transferred to the general medical service overnight. Chart reviewed. She reports productive cough. Denies chest pain. Denies shortness of breath at rest. Denies nausea vomiting. Reports fair appetite. She had a MAXIMUM TEMPERATURE of 100.0 yesterday. She is hemodynamically stable saturating 94% on 3 L of oxygen. Gen. appearance: Well-developed, lethargic Heart: S1-S2 regular with no added sounds Lungs: Diffuse expiratory rhonchi Abdomen: Soft, nontender with normal bowel sounds Extremities: No pedal edema Skin: Intact with no rashes Neurologic: No gross focal deficit. Problems: 1. Acute hypoxic respiratory failure secondary to contrast or pneumonia/ bronchomalacia 2. Acute kidney injury 3. Metabolic encephalopathy; improving 4. History of depression Plan: -Patient appears to be improving clinically. Continue IV Rocephin today. If she remains afebrile and hemodynamically stable may transition to Augmentin in a.m. to complete 10 days of antibiotic therapy. -In view of her diffuse rhonchi bilaterally recommend beginning patient on IV steroids and tapering off with clinical response. -Patient appears more cooperative at present. Recommend discontinuation was events utilizing a bedside sitter and bed alarm as needed. -Nursing staff to mobilize patient. Obtain physical therapy consult as well. -Continue IV fluids as recommended by the renal service.
--- NOTE | 2016-05-08 11:49 | PN- Nephrology ---
Assessment/Plan Assessment: 1. Acute kidney injury - prerenal versus ATN - gradually resolving 2. Multilobar pneumococcal pneumonia - seems to be generally improving Suggestion: 1. Continue hydration with IV normal saline; can decrease rate to 75 mL per hour 2. Monitor intake and output, chemistries daily Subjective Subjective: She is feeling better today although still not well. There was some shortness of breath this morning which has resolved. Renal function continues to slowly improve. Objective Vital Signs and I&Os Vital Signs Date Time Temp Pulse Resp B/P Pulse O2 O2 Flow FiO2 Ox Delivery Rate 05/08 1032 66 128/82 05/08 0746 91 Room Air Room Air 05/08 0711 99.0 66 18 128/82 94 Nasal 3.0L Cannula 05/08 0032 99.2 77 19 138/80 96 Nasal 3.0L Cannula 05/08 0000 Nasal 3.0L Cannula 05/07 1948 100.0 73 20 132/70 91 05/07 1748 94 Nasal 3.0L Cannula 05/07 1600 95 Nasal 3.0L Cannula 05/07 1600 99.9 100 24 140/80 94 Nasal 3.0L Cannula 05/07 1530 98.0 Intake & Output 05/08 1600 05/08 0400 05/07 1600 05/07 0400 05/06 1600 05/06 0400 Intake Total 9210 082 8350 694 2051 1787 Output Total 100 3000 1350 1345 495 Balance 1180 480 -510 -810 416 8889 Intake, IV 800 6559 482 9721 1547 Intake, Oral 480 480 920 120 480 240 Number 1 0 1 0 Bowel Movements Output, Urine 100 3000 1350 1345 495 Patient 160 lb 135 lb Weight Physical Exam: General: Well-developed white female in NAD Skin: No rash or jaundice HEENT: Conjunctivae pink, sclerae anicteric, pupils dilated, mucous membranes dry Neck: Without masses or thyromegaly, no supraclavicular or cervical adenopathy Chest: Few wheezes and rhonchi bilaterally but clearer than yesterday Heart: Regular rate and rhythm without S3 or rub Abdomen: Soft and nontender without palpable masses or organomegaly Extremities: Without cyanosis or edema Neuro: No focal findings, no asterixis or myoclonus; more alert today Current Medications: Current Medications Sig/Jeff Start time Last Medication Dose Route Stop Time Status Admin Acetylcysteine 2 ML EVERY 4 HRS/AWAKE 05/05 1999 DC 05/07 INH 2229 Albuterol Sulfate 3 ML EVERY 4 HRS/AWAKE 05/05 1999 AC 05/08 INH 0744 Bupropion HCl 150 MG BID 05/07 1045 AC 05/08 PO 1032 Ceftriaxone Sodium 1,000 MG Q24H 05/06 1300 AC 05/07 IV 1330 Fluoxetine HCl 40 MG DAILY 05/07 1046 AC 05/08 PO 1032 Guaifenesin 600 MG Q12 05/05 2200 AC 05/08 PO 1032 Heparin Sodium 5,000 UNIT Q8 05/05 2200 AC 05/08 (Porcine) SC 0550 Lorazepam 1 MG TIDPRN PRN 05/05 1645 AC 05/07 PO 1644 Melatonin 5 MG AT BEDTIME 05/06 2200 AC 05/07 PO 2300 Methylprednisolone 60 MG ONCE ONE 05/08 1030 DC 05/08 IV 05/08 1031 1139 Metoprolol Succinate 12.5 MG DAILY 05/06 1000 AC 05/08 PO 1032 Morphine Sulfate 30 MG Q8 05/07 1400 AC 05/08 PO 0550 Morphine Sulfate 2 MG Q4P PRN 05/05 1645 AC 05/07 IV 1644 Olanzapine 10 MG 0800 05/07 1100 AC 05/08 PO 1032 Oxycodone HCl 15 MG TIDPRN PRN 05/05 1645 AC 05/05 PO 2004 Sodium Chloride 1,000 ML .Q10H 05/05 1615 AC 05/07 IV 2300 Results Pertinent Lab Results: Laboratory Tests 05/08 05/07 0645 0431 Chemistry Sodium (137 - 145 mmol/L) 140 141 Potassium (3.5 - 5.1 mmol/L) 3.5 3.9 Chloride (98 - 107 mmol/L) 102 106 Carbon Dioxide (22 - 30 mmol/L) 24 22 Anion Gap (5 - 16) 14 12 BUN (7 - 17 mg/dL) 30 H 42 H Creatinine (0.5 - 1.0 mg/dL) 2.1 H 2.6 H Estimated GFR (>60 ml/min) 24 L 19 L BUN/Creatinine Ratio (7 - 25 %) 14.3 Glucose (65 - 99 mg/dL) 97 Calcium (8.4 - 10.2 mg/dL) 7.8 L Phosphorus (2.5 - 4.5 mg/dL) 3.5 Magnesium (1.6 - 2.3 mg/dL) 1.7 Total Bilirubin (0.2 - 1.3 mg/dL) 0.6 AST (14 - 36 U/L) 137 H ALT (9 - 52 U/L) 64 H Albumin (3.5 - 5.0 g/dL) 2.4 L Hematology CBC w Diff NO MAN DIFF REQ NO MAN DIFF REQ WBC (4.8 - 10.8 /CUMM) 8.5 6.1 RBC (4.20 - 5.40 /CUMM) 3.48 L 3.39 L Hgb (12.0 - 16.0 G/DL) 10.1 L 9.9 L Hct (37 - 47 %) 29.8 L 29.1 L MCV (81.0 - 99.0 FL) 85.8 85.9 MCH (27.0 - 31.0 PG) 29.2 29.2 RDW (11.5 - 14.5 %) 14.8 H 14.6 H Plt Count (130 - 400 /CUMM) 287 224 MPV (7.4 - 10.4 FL) 7.9 7.9 Gran % (42.2 - 75.2 %) 78.6 H 73.8 Lymphocytes % (20.5 - 51.1 %) 16.7 L 21.9 Monocytes % (1.7 - 9.3 %) 3.8 3.6 Eosinophils % (0 - 5 %) 0.5 0.2 Basophils % (0.0 - 2.0 %) 0.4 0.5 Absolute Granulocytes (1.4 - 6.5 /CUMM) 6.7 H 4.5 Absolute Lymphocytes (1.2 - 3.4 /CUMM) 1.4 1.3 Absolute Monocytes (0.10 - 0.60 /CUMM) 0.3 0.2 Absolute Eosinophils (0.0 - 0.7 /CUMM) 0 0 Absolute Basophils (0.0 - 0.2 /CUMM) 0 0 PUBS MCHC (33.0 - 37.0 G/DL) 34.0 34.0 /07 02/05/05 0426 2357 1805 Chemistry Sodium (137 - 145 mmol/L) 141 139 141 Potassium (3.5 - 5.1 mmol/L) 4.0 3.9 3.4 L Chloride (98 - 107 mmol/L) 107 107 108 H Carbon Dioxide (22 - 30 mmol/L) 20 L 21 L 20 L Anion Gap (5 - 16) 13 11 13 BUN (7 - 17 mg/dL) 54 H 56 H 55 H Creatinine (0.5 - 1.0 mg/dL) 3.3 H 3.5 H 3.6 H Estimated GFR (>60 ml/min) 14 L 13 L 13 L Glucose (65 - 99 mg/dL) 90 99 111 H Lactic Acid (0.7 - 2.1 mmol/L) 1.2 Calcium (8.4 - 10.2 mg/dL) 7.0 L 6.8 L 6.7 L Phosphorus (2.5 - 4.5 mg/dL) 3.9 3.8 3.5 Magnesium (1.6 - 2.3 mg/dL) 1.8 1.8 1.6 Total Bilirubin (0.2 - 1.3 mg/dL) 0.5 0.5 0.4 AST (14 - 36 U/L) 152 H 168 H 161 H ALT (9 - 52 U/L) 62 H 69 H 63 H Albumin (3.5 - 5.0 g/dL) 2.3 L 2.5 L 2.5 L Hematology CBC w Diff MAN DIFF ORDERED WBC (4.8 - 10.8 /CUMM) 5.4 RBC (4.20 - 5.40 /CUMM) 3.30 L Hgb (12.0 - 16.0 G/DL) 9.7 L Hct (37 - 47 %) 28.3 L MCV (81.0 - 99.0 FL) 85.9 MCH (27.0 - 31.0 PG) 29.4 RDW (11.5 - 14.5 %) 14.4 Plt Count (130 - 400 /CUMM) 193 MPV (7.4 - 10.4 FL) 8.0 Gran % (42.2 - 75.2 %) 81.8 H Lymphocytes % (20.5 - 51.1 %) 14.8 L Monocytes % (1.7 - 9.3 %) 3.0 Eosinophils % (0 - 5 %) 0 Basophils % (0.0 - 2.0 %) 0.4 Absolute Granulocytes (1.4 - 6.5 /CUMM) 4.4 Segmented Neutrophils (42.2 - 75.2 %) 64 Band Neutrophils (0.0 - 5.0 %) 10 H Absolute Lymphocytes (1.2 - 3.4 /CUMM) 0.8 L Lymphocytes (20.5 - 51.1 %) 23 Monocytes (1.7 - 9.3 %) 2 Absolute Monocytes (0.10 - 0.60 /CUMM) 0.2 Absolute Eosinophils (0.0 - 0.7 /CUMM) 0 Absolute Basophils (0.0 - 0.2 /CUMM) 0 Metamyelocytes (0.0 - 1.0 %) 1 Platelet Estimate (ADEQUATE) ADEQUATE Polychromasia 1+ Ovalocytes 1+ PUBS MCHC (33.0 - 37.0 G/DL) 34.2 05/05 05/05 05/05 05/05 05/05 1800 1800 1715 1630 1509 Chemistry Lactic Acid (0.7 - 2.1 mmol/L) 2.9 H Phosphorus (2.5 - 4.5 mg/dL) 3.4 Magnesium (1.6 - 2.3 mg/dL) 1.6 Creatine Kinase (30 - 135 U/L) 4655 H Troponin I (< 0.11 ng/ml) < 0.01 Urines Urine Osmolality (300 - 1000 MOSM/KG) 368 Ur Random Creatinine (mg/dL) Cancelled 49.2 52.1 U Random Total Protein (0 - 12 mg/dL) Cancelled 70 H Ur Random Sodium (30 - 90 mmol/L) 74 Ur Random Potassium (mmol/L) 18.5 Protein/Creatinin Ratio (< 0.2) 1.3 H Fraction Sodium Excret (<1% %) 4.7 H 05/05 05/05 1255 1220 Blood Gas pH (7.35 - 7.45 PH) 7.40 pCO2 (35 - 45 TORR) 36 pO2 (80 - 100 TORR) 65 L HCO3 (21 - 28 MEQ/L) 22 ABG O2 Sat (Measured) (>96.0 %) 91.0 L P-50 (Temp Corrected) Y Carboxyhemoglobin (1.5 - 5.0 %) 0.7 L O2 Concentration % 3L Temperature (97.0 - 100.0 FARH) 99.4 O2 Delivery Method N/C Miscellaneous Phlebotomy Draw Site RIGHT RADIAL Toxicology Urine Opiates Screen (>2000 NG/ML) > 4000.00 H Methadone Screen (>300 NG/ML) 57 Barbiturate Screen (>200 NG/ML) < 60 Ur Phencyclidine Scrn (>25 NG/ML) < 6.00 Amphetamines Screen (>1000 NG/ML) 466 U Benzodiazepines Scrn (>200 NG/ML) 159 Urine Cocaine Screen (>300 NG/ML) < 50 Urine Cannabis Screen (>50 NG/ML) < 5.00 Urines Urinalysis HEAVY H Urine Color (YEL,AMB,STR) YEL Urine Clarity (CLEAR) HAZY H Urine pH (5.0 - 8.0) 6.0 Ur Specific [place] (1.001 - 1.035) 1.025 Urine Protein (NEG,<30 MG/DL) 100 H Urine Ketones (NEG) NEG Urine Nitrite (NEG) NEG Urine Bilirubin (NEG) NEG Urine Urobilinogen (0.1 - 1.0 EU/dl) 0.2 Ur Leukocyte Esterase (NEG) NEG Ur Microscopic SEDIMENT EXAMINED Urine RBC (0 - 5 /HPF) 5-10 H Urine WBC (0 - 2 /HPF) 1-3 H Ur Epithelial Cells (NONE,FEW) RARE Urine Hemoglobin (NEG) LARGE H Urine Glucose (N MG/DL) NEG 05/05 1201 Chemistry Sodium (137 - 145 mmol/L) 139 Potassium (3.5 - 5.1 mmol/L) 3.5 Chloride (98 - 107 mmol/L) 97 L Carbon Dioxide (22 - 30 mmol/L) 24 Anion Gap (5 - 16) 18 H BUN (7 - 17 mg/dL) 67 H Creatinine (0.5 - 1.0 mg/dL) 4.3 H Estimated GFR (>60 ml/min) 11 L BUN/Creatinine Ratio (7 - 25 %) 15.6 Glucose (65 - 99 mg/dL) 113 H Lactic Acid (0.7 - 2.1 mmol/L) 2.0 Calcium (8.4 - 10.2 mg/dL) 8.0 L Total Bilirubin (0.2 - 1.3 mg/dL) 0.8 AST (14 - 36 U/L) 206 H ALT (9 - 52 U/L) 75 H Alkaline Phosphatase (<127 U/L) 74 Ammonia (9 - 30 umol/L) 15 Total Protein (6.3 - 8.2 g/dL) 6.5 Albumin (3.5 - 5.0 g/dL) 3.5 Globulin (1.9 - 4.2 gm/dL) 3.0 Albumin/Globulin Ratio (1.1 - 2.2 %) 1.2 Hematology CBC w Diff MAN DIFF ORDERED WBC (4.8 - 10.8 /CUMM) 6.0 RBC (4.20 - 5.40 /CUMM) 4.48 Hgb (12.0 - 16.0 G/DL) 12.9 Hct (37 - 47 %) 38.8 MCV (81.0 - 99.0 FL) 86.8 MCH (27.0 - 31.0 PG) 28.8 RDW (11.5 - 14.5 %) 13.7 Plt Count (130 - 400 /CUMM) 216 MPV (7.4 - 10.4 FL) 7.9 Gran % (42.2 - 75.2 %) 90.9 H Lymphocytes % (20.5 - 51.1 %) 6.7 L Monocytes % (1.7 - 9.3 %) 1.7 Eosinophils % (0 - 5 %) 0 Basophils % (0.0 - 2.0 %) 0.7 Absolute Granulocytes (1.4 - 6.5 /CUMM) 5.4 Segmented Neutrophils (42.2 - 75.2 %) 71 Band Neutrophils (0.0 - 5.0 %) 17 H Absolute Lymphocytes (1.2 - 3.4 /CUMM) 0.4 L Lymphocytes (20.5 - 51.1 %) 10 L Monocytes (1.7 - 9.3 %) 2 Absolute Monocytes (0.10 - 0.60 /CUMM) 0.1 L Absolute Eosinophils (0.0 - 0.7 /CUMM) 0 Absolute Basophils (0.0 - 0.2 /CUMM) 0 Normocytic RBCs VERIFIED Normochromic RBCs VERIFIED PUBS MCHC (33.0 - 37.0 G/DL) 33.2
[2016-05-08 15:55] VITALS: BP 120/70
[2016-05-09 00:13] VITALS: BP 130/82
[2016-05-09 08:53] VITALS: BP 130/76
--- NOTE | 2016-05-09 11:03 | PN- Psychiatry ---
Assessment/Plan Impression: The patient will be coming to Outpatient psychiatry; see below. History of seizure, without seizure disorder, thought to be induced by bupropion ; last event 1-1/2 years ago. Currently on: Fluoxetine 40 mg PO daily Lorazepam 1 mg PO 3X/day PRN Melatonin 5 mg PO at bedtime Morphine and MS Contin Olanzapine 10 mg PO daily (This medication made a large difference, per the patient) Bupropion 150 mg PO 2X/day Repeat EKG will be ordered today by housestaff; history of QTc prolongation; last on 05/07 SR 75, QTc 479 mS. Suggestion: 1. [facility] intake appointment on , 05/22/16, at 12:45PM, at [address] [place] [address], with Tish. The patient is to bring her photo ID and her insurance card. A card with this information was given to her nurse today, and the patient informed. 2. Repeat EKG, and if QTc prolongation, please advise us, and also contact pharmacy to seek recommendations for alternate to QTc-prolonging psychotropics. 3. Continue home psychotropic medications: Fluoxetine 40 mg PO daily Lorazepam 1 mg PO 3X/day PRN Melatonin 5 mg PO at bedtime Olanzapine 10 mg PO daily (This medication made a large difference, per the patient) Bupropion 150 mg PO 2X/day 4. In OPS, please consider alternatives to bupropion, which may have contributed to lowered seizure threshold in the past. Unsure if this is soley responsible for 3 seizures experienced after start of this med. Thank-you for asking us to assist with Velia's care. We do not anticipate further visits, as the patient will likely discharge to home tomorrow. Ana Nolan APRN, Pager [phone] Subjective Subjective: Patient seen today, 05/09/16, at 1000, in room 214. She is sitting calmly in her chair, and is alert, oriented to person, place, reason for admission, but not day. She scales her depression as 8/10, anxiety at 8/10; both with 10/10 being the most severe. She endorses hopelessness, helplessness but not worthlessness. She denies current suicidal or homicidal ideation, and denies a history of suicide attempt, but endorses a history of SI. Velia denies current paranoia ideation, but states in the past she has had delusions of the FBI being in the next roon, or someone trying to steal her daughter Priscila. She states that she feels safe at home and here in the hospital. The patient lives at home with her spouse and [id number]. She has 4 children 38, 36, 34, 32 and 4 grandchildren; all live in the [place], [place] area. She states she has had 3 seizures in her life, which began when she started taking Wellbutrin. The last event was 1-1/2 years ago, the previous one to that was 1 year earlier. She denies stopping the med at the time of seizure. "I'm someone who gets side effects easily." Sleep is 8-9 hours, with no problem with induction, in spite of taking Wellbutrin 2X/day. She reports her appetite is OK. Current medications managed by Dr. Singh, PCP. She agrees to come to [facility] for psych med following, but states that after 5 years of psychotherapy, she is taking a break, "We were all talked out."
--- NOTE | 2016-05-09 12:48 | PN- Att Addend ---
Attending Addendum Attending Brief Note Patient seen and examined. She is more alert today. Denies chest pain or shortness of breath. Reports mild cough. She was seen by the physical therapy service and cleared for discharge home when medically stable. She is saturating 96% on 1 L of oxygen. Vital Signs Date Time Temp Pulse Resp B/P Pulse O2 O2 Flow FiO2 Ox Delivery Rate 05/09 0903 68 130/76 05/09 0853 97.8 68 20 130/76 93 Room Air 05/09 0805 96 Nasal 1.0L Cannula 05/09 0800 94 Room Air Room Air 05/09 0527 95 Nasal 1.0L Cannula 05/09 0013 97.4 48 20 130/82 96 Nasal 1.0L Cannula 05/09 0000 Nasal 1.0L Cannula 05/08 1701 94 Room Air 05/08 1600 93 Nasal 1.0L Cannula 05/08 1555 98.1 79 19 120/70 93 Gen. appearance: Well-developed, not in acute distress Heart: S1-S2 regular Lungs: Diffuse expiratory rhonchi. Abdomen: Soft, nontender with normal bowel sounds Extremities: No pitting edema Skin: Intact with no rashes Laboratory Tests 05/09/16 0650: Anion Gap 16, Estimated GFR 29 L, BUN/Creatinine Ratio 18.9 Problems: 1. Sepsis secondary to Streptococcus pneumonia. 2. Acute kidney injury; resolving 3. History of depression and psychosis; long-standing. 4. QT prolongation. Plan: -Transition patient to Augmentin. Continue for 5 more days to complete 10 days of antibiotic therapy. -In addition evidence of bronchomalacia and admission. She has diffuse rhonchi on exam. Recommend prednisone taper. -Acute kidney injury is resolving. IV fluids have been discontinued. Encourage oral intake. -Psychiatric follow-up appreciated. Repeat EKG and notify the psychiatric service. -Anticipate discharge home tomorrow.
--- NOTE | 2016-05-09 14:54 | PN- Nephrology ---
Assessment/Plan Assessment: 1. Acute kidney injury - prerenal versus ATN -continuing to improve 2. Multilobar pneumococcal pneumonia -clinically improving Suggestion: 1. Encourage by mouth fluids 2. Okay for discharge tomorrow from renal standpoint; would repeat a set of chemistries (BMP) next week as an outpatient Thank you for asking us to become involved in her care. Subjective Subjective: Feeling better in general with less wheezing. No chest pain and she remains afebrile. Renal function continues to slowly improve. Creatinine down to 1.8 today. Objective Vital Signs and I&Os Vital Signs Date Time Temp Pulse Resp B/P Pulse O2 O2 Flow FiO2 Ox Delivery Rate 05/09 0903 68 130/76 05/09 0853 97.8 68 20 130/76 93 Room Air 05/09 0805 96 Nasal 1.0L Cannula 05/09 0800 94 Room Air Room Air 05/09 0527 95 Nasal 1.0L Cannula 05/09 0013 97.4 48 20 130/82 96 Nasal 1.0L Cannula 05/09 0000 Nasal 1.0L Cannula 05/08 1701 94 Room Air 05/08 1600 93 Nasal 1.0L Cannula 05/08 1555 98.1 79 19 120/70 93 Intake & Output 05/09 1600 05/09 0400 05/08 1600 05/08 0400 05/07 1600 05/07 0400 Intake Total 3631 539 7400 480 2490 694 Output Total 035 343 0976 1350 Balance 5274 250 2269 480 -510 -656 Intake, IV 746 997 9613 1570 574 Intake, Oral 920 560 960 480 920 120 Number 1 1 1 0 Bowel Movements Output, Urine 079 081 6784 1350 Physical Exam: General: Well-developed white female in NAD Skin: No rash or jaundice HEENT: Conjunctivae pink, sclerae anicteric, pupils dilated, mucous membranes dry Neck: Without masses or thyromegaly, no supraclavicular or cervical adenopathy Chest: Few wheezes and rhonchi bilaterally, more prominent on the left Heart: Regular rate and rhythm without S3 or rub Abdomen: Soft and nontender without palpable masses or organomegaly Extremities: Without cyanosis or edema Neuro: Alert and oriented, no focal findings, no asterixis or myoclonus Current Medications: Current Medications Sig/Jeff Start time Last Medication Dose Route Stop Time Status Admin Albuterol Sulfate 3 ML EVERY 4 HRS/AWAKE 05/05 2000 AC 05/09 INH 1124 Bupropion HCl 150 MG BID 05/07 1045 AC 05/09 PO 0903 Ceftriaxone Sodium 1,000 MG Q24H 05/06 1300 AC 05/09 IV 1349 Fluoxetine HCl 40 MG DAILY 05/07 1046 AC 05/09 PO 0903 Guaifenesin 600 MG Q12 05/05 2200 AC 05/09 PO 0903 Heparin Sodium 5,000 UNIT Q8 05/05 2200 AC 05/09 (Porcine) SC 1348 Lorazepam 1 MG TIDPRN PRN 05/05 1645 AC 05/07 PO 1644 Melatonin 5 MG AT BEDTIME 05/06 2200 AC 05/08 PO 2213 Metoprolol Succinate 12.5 MG DAILY 05/06 1000 AC 05/09 PO 0903 Morphine Sulfate 30 MG Q8 05/07 1400 AC 05/09 PO 1347 Morphine Sulfate 2 MG Q4P PRN 05/05 1645 AC 05/07 IV 1644 Olanzapine 10 MG 0800 05/07 1100 AC 05/09 PO 0903 Oxycodone HCl 15 MG TIDPRN PRN 05/05 1645 AC 05/05 PO 2003 Patient Medication 1 ED .STK-MED ONE 05/09 1334 DC Teaching ED 05/09 1335 Prednisone 40 MG ONCE ONE 05/09 1015 DC 05/09 PO 05/09 1016 1140 Sodium Chloride 1,000 ML .[id number] 05/05 1615 DC 05/09 IV 0330 Results Pertinent Lab Results: Laboratory Tests 05/09 05/08 0650 0645 Chemistry Sodium (137 - 145 mmol/L) 141 140 Potassium (3.5 - 5.1 mmol/L) 3.8 3.5 Chloride (98 - 107 mmol/L) 101 102 Carbon Dioxide (22 - 30 mmol/L) 25 24 Anion Gap (5 - 16) 16 14 BUN (7 - 17 mg/dL) 34 H 30 H Creatinine (0.5 - 1.0 mg/dL) 1.8 H 2.1 H Estimated GFR (>60 ml/min) 29 L 24 L BUN/Creatinine Ratio (7 - 25 %) 18.9 14.3 Hematology CBC w Diff NO MAN DIFF REQ WBC (4.8 - 10.8 /CUMM) 8.5 RBC (4.20 - 5.40 /CUMM) 3.48 L Hgb (12.0 - 16.0 G/DL) 10.1 L Hct (37 - 47 %) 29.8 L MCV (81.0 - 99.0 FL) 85.8 MCH (27.0 - 31.0 PG) 29.2 RDW (11.5 - 14.5 %) 14.8 H Plt Count (130 - 400 /CUMM) 287 MPV (7.4 - 10.4 FL) 7.9 Gran % (42.2 - 75.2 %) 78.6 H Lymphocytes % (20.5 - 51.1 %) 16.7 L Monocytes % (1.7 - 9.3 %) 3.8 Eosinophils % (0 - 5 %) 0.5 Basophils % (0.0 - 2.0 %) 0.4 Absolute Granulocytes (1.4 - 6.5 /CUMM) 6.7 H Absolute Lymphocytes (1.2 - 3.4 /CUMM) 1.4 Absolute Monocytes (0.10 - 0.60 /CUMM) 0.3 Absolute Eosinophils (0.0 - 0.7 /CUMM) 0 Absolute Basophils (0.0 - 0.2 /CUMM) 0 PUBS MCHC (33.0 - 37.0 G/DL) 34.0 05/07 0431 Chemistry Sodium (137 - 145 mmol/L) 141 Potassium (3.5 - 5.1 mmol/L) 3.9 Chloride (98 - 107 mmol/L) 106 Carbon Dioxide (22 - 30 mmol/L) 22 Anion Gap (5 - 16) 12 BUN (7 - 17 mg/dL) 42 H Creatinine (0.5 - 1.0 mg/dL) 2.6 H Estimated GFR (>60 ml/min) 19 L Glucose (65 - 99 mg/dL) 97 Calcium (8.4 - 10.2 mg/dL) 7.8 L Phosphorus (2.5 - 4.5 mg/dL) 3.5 Magnesium (1.6 - 2.3 mg/dL) 1.7 Total Bilirubin (0.2 - 1.3 mg/dL) 0.6 AST (14 - 36 U/L) 137 H ALT (9 - 52 U/L) 64 H Albumin (3.5 - 5.0 g/dL) 2.4 L Hematology CBC w Diff NO MAN DIFF REQ WBC (4.8 - 10.8 /CUMM) 6.1 RBC (4.20 - 5.40 /CUMM) 3.39 L Hgb (12.0 - 16.0 G/DL) 9.9 L Hct (37 - 47 %) 29.1 L MCV (81.0 - 99.0 FL) 85.9 MCH (27.0 - 31.0 PG) 29.2 RDW (11.5 - 14.5 %) 14.6 H Plt Count (130 - 400 /CUMM) 224 MPV (7.4 - 10.4 FL) 7.9 Gran % (42.2 - 75.2 %) 73.8 Lymphocytes % (20.5 - 51.1 %) 21.9 Monocytes % (1.7 - 9.3 %) 3.6 Eosinophils % (0 - 5 %) 0.2 Basophils % (0.0 - 2.0 %) 0.5 Absolute Granulocytes (1.4 - 6.5 /CUMM) 4.5 Absolute Lymphocytes (1.2 - 3.4 /CUMM) 1.3 Absolute Monocytes (0.10 - 0.60 /CUMM) 0.2 Absolute Eosinophils (0.0 - 0.7 /CUMM) 0 Absolute Basophils (0.0 - 0.2 /CUMM) 0 PUBS MCHC (33.0 - 37.0 G/DL) 34.0
--- NOTE | 2016-05-09 15:19 | Patient Discharge Instructions ---
Discharge Instructions General Discharge Information You were seen/treated for: Sepsis secondary to Streptococcus pneumonia. Acute kidney injury; resolving History of depression and psychosis; long-standing. QT prolongation. Special Instructions: Please Schedule a follow-up appointment with your primary care physician in one week. Please get BEP checked in 1 week to ensure creatinine and other lites stability. prescription has been provided. You have being discharged on steroid taper, please take it as advised. Please schedule a follow-up appointment with shank boner in 2 weeks for follow- up on acute kidney injury, referral provided. Please follow-up with psychiatrist for dose adjustment of lorazepam, in hospital your getting 1 mg 3 times a day, ask his psychiatrist for dose adjustment if needed. please check a chest xray in 6 weeks Diet Continue normal diet: Yes Recommended Diet: Heart Healthy Activity Activity Self Limited: Yes Acute Coronary Syndrome Inclusion Criteria At DC or during hospital stay patient has or had the following: ACS DIAGNOSIS No Discharge Core Measures Meds if any: Prescribed or Continued at Discharge Meds if any: NOT Prescribed or Continued at Discharge Congestive Heart Failure Inclusion Criteria At DC or during hospital stay patient has or had the following: CHF DIAGNOSIS No Discharge Core Measures Meds if any: Prescribed or Continued at Discharge Meds if any: NOT Prescribed or Continued at Discharge Cerebrovascular accident Inclusion Criteria At DC or during hospital stay patient has or had the following: CVA/TIA Diagnosis No Discharge Core Measures Meds if any: Prescribed or Continued at Discharge Meds if any: NOT Prescribed or Continued at Discharge Venous thromboembolism Inclusion Criteria VTE Diagnosis No VTE Type NONE VTE Confirmed by (Test) NONE Discharge Core Measures - Per Current guidelines, there needs to be overlap - treatment for the first 5 days of Warfarin therapy. - If discharged on Warfarin prior to 5 days of - overlap therapy, the patient will need to be - assessed for post discharge needs including - *Post discharge parental anticoagulation - *Warfarin and/or parental anticoagulation education - *Follow up date to check INR post discharge At least 5 days overlap therapy as Inpatient No Meds if any: Prescribed or Continued at Discharge Note: Overlap Therapy is Warfarin and Anticoagulant Meds if any: NOT Prescribed or Continued at Discharge
[2016-05-09] MEDS ORDERED: PREDNISONE10 M2 PO (15:50)
[2016-05-09] MEDS ORDERED: AMOX-CLAV 875-1 EACH PO (16:53)
[2016-05-09] MEDS ORDERED: LORAZEPAM1 M1 PO (16:57)
[2016-05-09 16:58] VITALS: BP 132/84
--- NOTE | 2016-05-09 20:22 | PN- Housestaff ---
Subjective Follow-up For: LAYA PNA Subjective: pt seen and examined. She was sitting in bed in no acute distress, she still having mild wheeze b/l, but other orozco nofever, white count stable, she had no other complaints Review of Systems Constitutional: Reports: see HPI. Objective Last 24 Hrs of Vital Signs/I&O Vital Signs Date Time Temp Pulse Resp B/P Pulse O2 O2 Flow FiO2 Ox Delivery Rate 05/09 1658 97.2 69 18 132/84 94 Room Air 05/09 1600 94 Room Air Room Air 05/09 0903 68 130/76 05/09 0853 97.8 68 20 130/76 93 Room Air 05/09 0805 96 Nasal 1.0L Cannula 05/09 0800 94 Room Air Room Air 05/09 0527 95 Nasal 1.0L Cannula 05/09 0013 97.4 48 20 130/82 96 Nasal 1.0L Cannula 05/09 0000 Nasal 1.0L Cannula Intake & Output 05/09 1600 05/09 0800 05/09 0000 Intake Total 800 720 785 Output Total 250 Balance 800 470 785 Intake, IV 600 225 Intake, Oral 800 120 560 Number 1 1 Bowel Movements Output, Urine 250 Physical Exam General Appearance: Alert, Oriented X3, Cooperative, No Acute Distress Cardiovascular: Regular Rate, Normal S1, Normal S2, No Murmurs Lungs: mild wheeze b/l Abdomen: Normal Bowel Sounds, Soft, No Tenderness Extremities: No Clubbing, No Cyanosis, No Edema Current Medications: Current Medications Sig/Jeff Start time Last Medication Dose Route Stop Time Status Admin Albuterol Sulfate 3 ML EVERY 4 HRS/AWAKE 05/05 1999 AC 05/09 INH 1933 Amoxicillin/ 875 MG Q12 05/09 2200 AC Clavulanate Potassium PO Amoxicillin/ 875 MG Q12 05/09 1512 DC Clavulanate Potassium PO Bupropion HCl 150 MG BID 05/07 1045 AC 05/09 PO 0903 Ceftriaxone Sodium 1,000 MG Q24H 05/06 1300 DC 05/09 IV 1349 Fluoxetine HCl 40 MG DAILY 05/07 1046 AC 05/09 PO 0903 Guaifenesin 600 MG Q12 05/05 2200 AC 05/09 PO 0903 Heparin Sodium 5,000 UNIT Q8 05/05 2200 AC 05/09 (Porcine) SC 1348 Lorazepam 1 MG TIDPRN PRN 05/05 1645 AC 05/07 PO 1644 Melatonin 5 MG AT BEDTIME 05/06 2200 AC 05/08 PO 2213 Metoprolol Succinate 12.5 MG DAILY 05/06 1000 AC 05/09 PO 0903 Morphine Sulfate 30 MG Q8 05/07 1400 AC 05/09 PO 1347 Morphine Sulfate 2 MG Q4P PRN 05/05 1645 AC 05/07 IV 1644 Olanzapine 10 MG 0800 05/07 1100 AC 05/09 PO 0903 Oxycodone HCl 15 MG TIDPRN PRN 05/05 1645 AC 05/05 PO 2003 Patient Medication 1 ED .STK-MED ONE 05/09 1334 DC Teaching ED 05/09 1335 Prednisone 40 MG ONCE ONE 05/09 1015 DC 05/09 PO 05/09 1016 1140 Sodium Chloride 1,000 ML .[id number] 05/05 1615 DC 05/09 IV 0330 Last 24 Hrs of Lab/[facility] Results Last 24 Hrs of Labs/Mics: Laboratory Tests 05/09/16 0650: Anion Gap 16, Estimated GFR 29 L, BUN/Creatinine Ratio 18.9 Assessment/Plan Assessment: Patient continues to appear alert in the morning, but by dinner time she seems to be more confused. Her kidney function is improving day over day with intravenous fluids. EKG done this morning demonstrated near normalization of her QTc interval, for which we subsequently restarted her psychiatric medications. MS contin continues to be titrated up towards his home dose. She remains on intravenous antibiotics. Problem list: -Acute hypoxic respiratory failure -Sepsis -Community-acquired pneumonia -Prerenal acute kidney injury -Positive urine tox screen -Q waves on EKG in inferior leads/V4-V6 Respiratory/infectious disease: Patient was afebrile without leukocytosis upon initial evaluation despite being hypoxic to the "80s "in triage requiring supplemental oxygen via nasal cannula. Strep pneumonia antigen positive. -C neb treatments as needed -Augmentin 875mg BID started to complete a course of ten days. -prednisone taper 40mg dailX3, >>30X3>>20X3>>10X3 -Albuterol/ipratropium Cardiovascular: EKG on initial evaluation demonstrated sinus tachycardia with QTc prolongation and Q waves present and inferior leaves and V4-6. Troponin was <0.01. Patient, although altered does admit to left-sided chest pain radiating through to the back. -Metoprolol XL 12.5 mg by mouth daily Renal: Patient found to be severely dehydrated requiring 5+ liters of normal saline intravenous resuscitation prior to being admitted. BUN/creatinine found to be elevated suggestive of a pre-renal acute kidney injury. It was found to be elevated to 4600. -Normal saline at 75 mL per hour -Nephrology consult placed, follow-up recommendations Musculoskeletal: Patient reportedly has a history of long-standing back pain and right hip pain for which she is seen by her primary care physician (Dr. Singh) and treated with opiate narcotics. CPK found to be elevated to 4600. CT AUTOMATION LEAD checked, reported medications are consistent with this report; printed copy is available in the chart. -MS Contin 15mg PO TID started, titrate up to home dose slowly -Oxycodone 15 mg by mouth 3 times a day as needed for pain 4-6 -Morphine 2 mg IV every 4 hours as needed for pain 7-10 Psychiatric: Patient has an extensive history of depression and suicidal ideation without any reported attempts. She was seen by Dr. Hutchinson of [place] for treatment of this initially and has been maintained on her antipsychotic/depression medication regimen for some time by her PCP, which has been reportedly stable. -Bupropion/fluoxetine/olanzapine restarted -Lorazepam 1 mg by mouth 3 times a day as needed -Psychiatric consult placed, follow-up recommendations Pain plan-as above Diet - Regular Diet DVT prophylaxis-subcutaneous heparin Code Status-DNR/DNI per Problem List: 1. Renal failure 2. Pneumonia Pain Ratin Pain Location: back Pain Goal: Remain pain free Pain Plan: -MS Contin 15mg PO TID started, titrate up to home dose slowly -Oxycodone 15 mg by mouth 3 times a day as needed for pain 4-6 -Morphine 2 mg IV every 4 hours as needed for pain 7-10 Tomorrow's Labs & Rationales: none Consulting Request: Consulting Specialty: Psychiatry
[2016-05-10 00:01] VITALS: BP 138/78
[2016-05-10 08:07] VITALS: BP 128/62
--- NOTE | 2016-05-10 09:35 | PN- Housestaff ---
R[place] DIAZ 05/10/16 0935: Subjective Follow-up For: Acute kidney injury Pneumonia History of seizure disorder Depression/anxiety Subjective: seen and examined patient, offers no complaints however is coughing. Denies fever, chills, shortness of breath Review of Systems Constitutional: Denies: chills, diaphoresis, fever, malaise, weakness, unexplained weight loss. Cardiovascular: Denies: chest pain, edema, orthopena, palpitations, peripheral edema, syncope. Respiratory: Denies: cough, hemoptysis, orthopnea, short of breath, sputum production, stridor, wheezing. Objective Last 24 Hrs of Vital Signs/I&O Vital Signs Date Time Temp Pulse Resp B/P Pulse O2 O2 Flow FiO2 Ox Delivery Rate 05/10 1732 93 Room Air 05/10 1614 98.2 64 19 140/82 94 Room Air 05/10 0849 64 128/60 05/10 0827 94 Room Air 05/10 0807 98.0 62 20 128/62 92 Room Air 05/10 0800 96 Room Air Room Air 05/10 0001 98.0 72 19 138/78 93 Room Air 05/09 2210 94 Room Air Intake & Output 05/10 1600 05/10 0800 05/10 0000 Intake Total 650 400 360 Output Total 800 Balance -150 400 360 Intake, Oral 650 400 360 Output, Urine 800 Physical Exam General Appearance: Alert, Oriented X3, Cooperative, No Acute Distress Cardiovascular: Regular Rate, Normal S1, Normal S2 Lungs: b/l rhonchi Assessment/Plan Assessment: 60-year-old woman with past medical history of severe depression, bipolar disorder, suicidal ideation in past, hypertension, chronic opiate dependence ( lower back and right hip pain) brought in by has been for altered mental status found to found to have diego improving on IV fluids, Renal ultrasound showed no evidence of obstruction, urine culture positive for strep pneumo antigen, Chest x-ray shows multilobar pneumonia. Clinically seems improved her examination continues to have bilateral rhonchi and cough Community-acquired pneumonia afebrile -Continue TRC neb treatments as needed -On Augmentin 875mg BID started to complete a course of ten days. -prednisone taper 40mg dailX3, >>30X3>>20X3>>10X3 -Albuterol/ipratropium DIEGO -Nephrology on board, appreciate recommendations creatinine 1.7 today Will follow-up as outpatient Hypertension -Metoprolol XL 12.5 mg by mouth daily Depression -Bupropion/fluoxetine/olanzapine restarted -Lorazepam 1 mg by mouth 3 times a day as needed -Psychiatric consult placed, follow-up recommendations Follow up as outpatient psychiatry Pain plan-as above Diet - Regular Diet DVT prophylaxis-subcutaneous heparin Code Status-DNR/DNI per Problem List: 1. Renal failure 2. Pneumonia Pain Ratin Pain Location: na Pain Goal: Pain 4 or less Pain Plan: Current regimen Tomorrow's Labs & Rationales: BEP Consulting Request: Consulting Specialty: Psychiatry JOSELYN SAMANIEGO,LAL 05/10/16 1839: Attending MD Review Statement Attending Statement Attending MD Statement: examined this patient, discuss w/resident/PA/TENSION MACHINE OPERATOR, agreed w/resident/PA/TENSION MACHINE OPERATOR, discussed with family, reviewed EMR data (avail), discussed with nursing, reviewed images Attending Assessment/Plan: 60-year-old female with past medical history significant for depression and psychosis was initially admitted to the ICU with multilobar pneumonia and DIEGO. Patient has been downgraded to the general medical floor. Have seen and examined the patient, complaining of left quadrant pain, vitals stable. Patient is a potential discharge tomorrow after looking at the QT prolongation and getting final recommendations from the psychiatry service. Nephrology has been following up on the patient and has cleared for discharge. Patient would follow up as an outpatient with his primary care physician and will repeat his chemistry in 1 week and chest x-ray in 6 weeks to see for the resolution of pneumonia.
[2016-05-10 16:14] VITALS: BP 140/82
[2016-05-10 23:53] VITALS: BP 148/86
[2016-05-11 08:49] VITALS: BP 140/80
--- NOTE | 2016-05-11 09:01 | PN- Housestaff ---
JOSELYN SAMANIEGO,[facility] 05/11/16 0901: Subjective Follow-up For: Acute kidney injury Pneumonia History of seizure disorder Depression/anxiety Subjective: Patient seen and examined this morning. She is lying in bed in no acute distress. Bilateral wheezing is completely gone, she remains stable, no fever no white count, to be discharged today. Review of Systems Constitutional: Reports: see HPI. Objective Last 24 Hrs of Vital Signs/I&O Vital Signs Date Time Temp Pulse Resp B/P Pulse O2 O2 Flow FiO2 Ox Delivery Rate 05/11 0749 97.6 60 18 140/80 92 Room Air 05/11 0807 78 140/80 05/11 0800 95 Room Air Room Air 05/10 2353 97.8 63 18 148/86 94 Room Air 05/10 1732 93 Room Air 05/10 1614 98.2 64 19 140/82 94 Room Air Intake & Output 05/11 1600 05/11 0800 05/11 0000 Intake Total 360 900 Output Total Balance 360 900 Intake, Oral 360 900 Physical Exam General Appearance: Alert, Oriented X3, Cooperative Cardiovascular: Regular Rate, Normal S1, Normal S2 Lungs: Clear to Auscultation, Normal Air Movement Abdomen: Normal Bowel Sounds, Soft, No Tenderness Extremities: No Clubbing, No Cyanosis, No Edema Current Medications: Current Medications Sig/Jeff Start time Last Medication Dose Route Stop Time Status Admin Acetaminophen 650 MG Q4P PRN 05/10 1230 AC 05/11 PO 0548 Albuterol Sulfate 3 ML BID 05/10 2200 AC INH Albuterol Sulfate 3 ML EVERY 4 HRS/AWAKE 05/05 2000 DC 05/10 INH 1727 Amoxicillin/ 875 MG Q12 05/09 2200 AC 05/11 Clavulanate Potassium PO 08 Bupropion HCl 150 MG BID 05/07 1045 AC 05/11 PO 0806 Fluoxetine HCl 40 MG DAILY 05/07 1046 AC 05/11 PO 0806 Guaifenesin 600 MG Q12 05/05 2200 AC 05/11 PO 0806 Heparin Sodium 5,000 UNIT Q8 05/05 2200 AC 05/11 (Porcine) SC 0545 Lorazepam 1 MG TIDPRN PRN 05/05 1645 AC 05/07 PO 1644 Melatonin 5 MG AT BEDTIME 05/06 2200 AC 05/10 PO 2150 Metoprolol Succinate 12.5 MG DAILY 01/03 1000 AC 05/11 PO 0807 Morphine Sulfate 30 MG Q8 05/07 1400 AC 05/11 PO 0547 Morphine Sulfate 2 MG Q4P PRN 05/05 1645 AC 05/07 IV 1644 Olanzapine 10 MG 0800 05/07 1100 AC 05/11 PO 0806 Oxycodone HCl 15 MG TIDPRN PRN 05/05 1645 AC 05/05 PO 2003 Prednisone 40 MG ONCE ONE 05/11 0845 DC PO 05/11 0846 Last 24 Hrs of Lab/[facility] Results Last 24 Hrs of Labs/Mics: Laboratory Tests 05/11/16 0644: Anion Gap 14, Estimated GFR 39 L, BUN/Creatinine Ratio 21.4 Assessment/Plan Assessment: 60-year-old woman with past medical history of severe depression, bipolar disorder, suicidal ideation in past, hypertension, chronic opiate dependence ( lower back and right hip pain) brought in by has been for altered mental status found to found to have laya improving on IV fluids, Renal ultrasound showed no evidence of obstruction, urine culture positive for strep pneumo antigen, Chest x-ray shows multilobar pneumonia. Clinically seems improved her examination continues to have bilateral rhonchi and cough Community-acquired pneumonia afebrile -Continue TRC neb treatments as needed -On Augmentin 875mg BID started to complete a course of ten days. -prednisone taper 40mg dailX3, >>30X3>>20X3>>10X3 none stopped -Albuterol/ipratropium LAYA -Nephrology on board, appreciate recommendations creatinine 1.4 today Will follow-up as outpatient, patient to have a repeat BEP in 1 week Hypertension -Metoprolol XL 12.5 mg by mouth daily Depression -Bupropion/fluoxetine/olanzapine restarted -Lorazepam 1 mg by mouth 3 times a day as needed -Psychiatric consult placed, follow-up recommendations Follow up as outpatient psychiatry Pain plan-as above Diet - Regular Diet DVT prophylaxis-subcutaneous heparin Code Status-DNR/DNI per Problem List: 1. Pneumonia 2. Renal failure Pain Ratin Pain Location: None Pain Goal: Remain pain free Pain Plan: -MS Contin 15mg PO TID started, titrate up to home dose slowly -Oxycodone 15 mg by mouth 3 times a day as needed for pain 4-6 -Morphine 2 mg IV every 4 hours as needed for pain 7-10 Tomorrow's Labs & Rationales: None patient to be discharged Consulting Request: Consulting Specialty: Psychiatry JOSELYN SAMANIEGO,HALI 05/11/16 1537: Attending MD Review Statement Attending Statement Attending MD Statement: examined this patient, discuss w/resident/PA/EXTRUDER OPERATOR VERTICAL, agreed w/resident/PA/EXTRUDER OPERATOR VERTICAL, reviewed EMR data (avail), discussed with nursing, reviewed images Attending Assessment/Plan: 60-year-old female with past medical history significant for depression and psychosis was initially admitted to the ICU with multilobar pneumonia and LAYA. Patient has been downgraded to the general medical floor. Patient was seen and examined on the bedside this morning and is doing well, denies any pain, vitals stable as reviewed. Patient is stable to be discharged today after looking at the QT prolongation that remained stable. Nephrology had been following up on the patient and has cleared for discharge. Patient would follow up as an outpatient with his primary care physician and will repeat his chemistry in 1 week and chest x-ray in 6 weeks to see for the resolution of pneumonia.
[2016-05-11] MEDS ORDERED: PREDNISONE10 M2 PO (10:41)
[2016-05-11] MEDS ORDERED: AMOX-CLAV 875-1 EACH PO (10:41)
--- NOTE | 2016-05-11 20:01 | Discharge Summary ---
Visit Information Visit Dates Admission Date: 05/05/16 Discharge Date: 05/11/16 Hospital Course Course Attending Physician: DENA CLARK M.D Primary Care Physician: JOAQUIN SAMANIEGO,SELENA Espinosa Consulting Request: Consulting Specialty: Psychiatry Hospital Course: 60-year-old woman with a medical history significant for hypertension, depression, suicidal ideation without attempts was seen for evaluation of altered mental status. Patient had "the flu" 1 week prior to admission for which she had decreased by mouth intake and subsequently became more confused. During this time she was also incontinent of urine and stool, which reportedly started after she started taking Vesicare. She was found to be creasing the more confused prior admission and this brought her to the emergency department for evaluation. patient was hypoxic to 80% upon initial evaluation. Vital signs the ER demonstrated temp 97.7-99.4, HR 101-112, RR 16-22, BP 102-26/ 69-83, O2 91-95% on 4.0 L via nasal cannula. Physical examination demonstrated woman not oriented to person place or time in mild respiratory distress with crackles heard in all 4 lung mueller and a limited but benign neurological exam. Lab work was remarkable for WBC 6.0, BUN/creatinine 67/4.3, lactic acid 2.9, AST /ALT 206/75, troponin <0.01, CPK pending. Arterial blood gas demonstrated hypoxia and chest x-ray demonstrated multilobar pneumonia. Urine toxicology was positive for opiates, methadone, amphetamines, and benzodiazepines. Blood/urine cultures were taken and patient was given intravenous fluids and antibiotics and was initially admitted for further treatment and evaluation. She was initially treated for acute hypoxemic respiratory failure secondary to sepsis due to multilobar pneumonia most likely community-acquired later turned out to be pneumococcal in origin. She was started on ceftriaxone and was later switched to Augmentin 875mg BID started to complete a course of ten days, over the time she also developed wheezing for which she was started on prednisone and discharged on prednisone taper along with continuation of her Albuterol/ ipratropium, supplemental oxygen/TRC neb as needed, Acute kidney injury Patient found to be severely dehydrated requiring 5+ liters of normal saline intravenous resuscitation prior to being admitted. BUN/creatinine 4.3 found to be elevated suggestive of a pre-renal acute kidney injury. It was found to be elevated to 4600. -She was started on IV hydration with Normal saline at 75 mL per hour, or time her creatinine came down, upon discharge creatinine was 1.4. -Nephrology was on board. She was advised to follow-up with nephrology upon discharge and get repeat BEP to ensure stability of kidney function Hypertension: She was continued on Metoprolol XL 12.5 mg by mouth daily Depression: Patient has an extensive history of depression and suicidal ideation without any reported attempts. She was seen by Dr. Hutchinson of [place] for treatment of this initially and has been maintained on her antipsychotic/depression medication regimen for some time by her PCP, which has been reportedly stable. She was continued on Bupropion/fluoxetine/olanzapine, Lorazepam 1 mg by mouth 3 times a day as needed Psychiatric was on board, she was advised to follow-up with psychiatrist upon discharge Chronic pain : Patient reportedly has a history of long-standing back pain and right hip pain for which she is seen by her primary care physician (Dr. Singh) and treated with opiate narcotics. CPK was found to be elevated to 4600. She was continued on the following meds. -MS Contin 15mg PO TID started, Oxycodone 15 mg by mouth 3 times a day as needed for pain 4-6 -Morphine 2 mg IV every 4 hours as needed for pain 7-10 DVT prophylaxis-subcutaneous heparin Code Status-DNR/DNI per Allergies: Coded Allergies: NO KNOWN ALLERGIES (02/01/14) Disposition Summary Disposition Principal Diagnosis: 1. Acute hypoxemic respiratory failure secondary to sepsis due to multilobar pneumonia most likely community-acquired 2. Acute kidney injury most likely secondary to severe dehydration 3. Transaminitis most likely secondary to sepsis 4. Lactic acidosis 5. Positive U tox screen 6. Severe depression/bipolar disorder/suicidal ideation in past 7. Hypertension 8. Chronic opiate dependence due to chronic back and hip pain Additional Diagnosis: . Discharge Disposition: home or self care Discharge Instructions General Discharge Information Code Status: Do Not Resucitate/Intubat Patient's Diet: Regular Patient's Activity: As tolerated Follow-Up Instructions/Appts: Patient advised to follow-up with solar engineer, primary care physician, psychiatrist in 1 week, also to get BE P in 1 week to ensure kidney function stability and to get a chest x-ray in 6 weeks to ensure resolution of pneumonia. Medications at Discharge Discharge Medications: Stop taking the following medications: Lorazepam (Lorazepam) 2 MG TABLET ORAL THREE TIMES DAILY Qty = 90 Continue taking these medications: Oxycodone Hydrochloride (Oxycodone Hydrochloride) 15 MG TAB 1 Tablet ORAL THREE TIMES DAILY as needed for PAIN Qty = 90 Olanzapine (Olanzapine) 10 MG TAB 1 Tablet ORAL DAILY Qty = 30 Metoprolol Succinate (Metoprolol Succinate) 25 MG TAB 0.5 Tablet ORAL DAILY Comments: LAST DOSE GIVEN 05/11/16 AT 8:00 AM Bupropion Hydrochloride (Bupropion HCl) 150 MG T12 1 Tablet ORAL TWICE DAILY Ms Contin (Morphine Sulfate ER) 60 MG TABLET.ER 1 Tablet ORAL THREE TIMES DAILY Qty = 90 Fluoxetine Hydrochloride (Fluoxetine HCl) 40 MG CAP 1 Capsule ORAL DAILY Qty = 90 Start taking the following new medications: Amoxicillin/Clavulanate Potass (Amox-Clav 875-125 MG Tablet) 875 MG-125 MG TABLET 875 Milligram ORAL EVERY 12 HOURS Days = 3 No Refills Comments: LAST DOSE GIVEN 05/11/16 AT 8:00 AM Prednisone (Prednisone) 10 MG TABLET 1 Tablet ORAL See Instructions Qty = 18 No Refills Instructions: 05/12-05/14 take 3 tabs daily 05/15-05/17 take 2 tabs daily 05/18-05/20 take 1 tab daily then stop. Comments: LAST DOSE OF 40MG GIVEN 05/11/16 AT 10:30 AM Lorazepam (Lorazepam) 1 MG TABLET 1 Milligram ORAL THREE TIMES A DAY NEEDED as needed for AGITAT/ HALLUCINATION/IRRITABIL Days = 10 No Refills Copies To: DENA CLARK M.D; JOAQUIN SAMANIEGO,SELENA Espinosa; LIANET SAMANIEGO,OANH [place] MD Review Statement Documenting Attending: DENA CLARK M.D Other Findings: I have reviewed the discharge summary.
== END 2016-05-11 11:05 | DRG 871 ==
LOC: ERH 11:39 → 2NB 14:12 → CRI 14:12 → ERHI 14:12 → CRI 18:00 → 2NB 05-07 19:37
PROVIDERS: Emergency Medicine; Internal Medicine; Internal Medicine Interventional Cardiology; ADMIT Internal Medicine
DX: A41.9 Sepsis, unspecified organism (principal); J11.08 Influenza due to unidentified influenza virus with specified pneumonia; J96.01 Acute respiratory failure with hypoxia; N17.9 Acute kidney failure, unspecified; J13 Pneumonia due to Streptococcus pneumoniae; E86.0 Dehydration; F11.20 Opioid dependence, uncomplicated; I10 Essential (primary) hypertension; F31.9 Bipolar disorder, unspecified; F44.89 Other dissociative and conversion disorders
CPT/HCPCS: 2NBP; 84133; 84300; CCU; 36415; 76775; 80307; 81001; 82436; 82570; 87040; 87070; 87086; 87449; 87450; 87804; 87804-59; 90732; 93005; 93010; 96360; 96361; 96374; 96375; 97001-GP; 97002-GP; 97110-GO; 97116-GO; 97161-GP; 97530-GO; 99233; 99291; J0456; J0696; J1644; J2930; J7040; J7608; Q2036